=== PATIENT | female | born 1985 | race Caucasian/White ===

== ENCOUNTER 2016-11-06 09:13 | Outpatient (CLI) | payer BC | END 2016-11-06 10:30 | disposition home or self-care (01) | LOC: LC 09:13 | PROVIDERS: ATTEND Obstetrics & Gynecology | PROC: 4A1HXCZ Monitoring of Products of Conception, Cardiac Rate, External Approach (ICD-10-PCS; principal; 2016-11-06) | DX: O20.0 Threatened abortion (principal); Z3A.01 Less than 8 weeks gestation of pregnancy | CPT/HCPCS: 76817; 84702 ==

== ENCOUNTER → 2016-11-24 | Outpatient (CLI) | payer BC ==
[2016-11-24 11:34] LABS: ABSOLUTE BASOPHILS # (AUTO) 0.1 10^3/uL (0.0-0.2); ABSOLUTE EOSINOPHILS # (AUTO) 0.1 10^3/uL (0.0-0.6); ABSOLUTE LYMPHOCYTES (AUTO) 2.3 10^3/uL (0.5-4.7); ABSOLUTE MONOCYTES (AUTO) 0.5 10^3/uL (0.1-1.4); BASOPHILS % (AUTO) 0.5 % (0-2); EOSINOPHILS % (AUTO) 0.6 % (0-6); HEMATOCRIT 41.6 % (36.0-47.0); HEMOGLOBIN 14.5 g/dL (12.0-15.5); HGB HCT DIFFERENCE 1.9; LYMPHOCYTES % (AUTO) 20.9 % (13-45); MEAN CORPUSCULAR HEMOGLOBIN 31.6 pg (27.0-33.4); MEAN CORPUSCULAR HGB CONC 34.9 g/dL (32.0-36.0); MEAN CORPUSCULAR VOLUME 91 fl (80-97); MONOCYTES % (AUTO) 4.5 % (3-13); RED BLOOD COUNT 4.59 10^6/uL (3.72-5.28); RED CELL DISTRIBUTION WIDTH 12.9 % (11.5-14.0); SEGMENTED NEUTROPHILS % (AUTO) 73.5 % (42-78); WHITE BLOOD COUNT 10.9 10^3/uL (4.0-10.5)
== END ==
LOC: OD 10:39
PROVIDERS: ATTEND Nurse Practitioner Primary Care
DX: O03.9 Complete or unspecified spontaneous abortion without complication (principal)
CPT/HCPCS: 36415; 84702; 85025

== ENCOUNTER → 2016-11-29 | Outpatient (CLI) | payer BC ==
[2016-11-29 09:58] LABS: ABSOLUTE EOSINOPHILS # (AUTO) 0.1 10^3/uL (0.0-0.6); ABSOLUTE LYMPHOCYTES (AUTO) 2.1 10^3/uL (0.5-4.7); ABSOLUTE MONOCYTES (AUTO) 0.5 10^3/uL (0.1-1.4); ABSOLUTE NEUT (AUTO) 6.7 10^3/uL (1.7-8.2); BASOPHILS % (AUTO) 0.3 % (0-2); EOSINOPHILS % (AUTO) 1.2 % (0-6); HEMOGLOBIN 12.3 g/dL (12.0-15.5); HGB HCT DIFFERENCE 1.9; LYMPHOCYTES % (AUTO) 22.2 % (13-45); MEAN CORPUSCULAR HEMOGLOBIN 31.7 pg (27.0-33.4); MEAN CORPUSCULAR HGB CONC 35.1 g/dL (32.0-36.0); MEAN CORPUSCULAR VOLUME 90 fl (80-97); RED BLOOD COUNT 3.87 10^6/uL (3.72-5.28); RED CELL DISTRIBUTION WIDTH 12.8 % (11.5-14.0); SEGMENTED NEUTROPHILS % (AUTO) 71.3 % (42-78); WHITE BLOOD COUNT 9.4 10^3/uL (4.0-10.5)
== END ==
LOC: OD 09:02
PROVIDERS: ATTEND Nurse Practitioner Primary Care
DX: O03.9 Complete or unspecified spontaneous abortion without complication (principal)
CPT/HCPCS: 36415; 84702; 85025

== ENCOUNTER → 2016-12-06 | Outpatient (CLI) | payer BC | LOC: OD 10:41 | PROVIDERS: ATTEND Nurse Practitioner Primary Care | DX: O03.9 Complete or unspecified spontaneous abortion without complication (principal) | CPT/HCPCS: 36415; 84702 ==

== ENCOUNTER → 2016-12-13 | Outpatient (CLI) | payer BC | LOC: OD 13:11 | PROVIDERS: ATTEND Nurse Practitioner Primary Care | DX: O03.9 Complete or unspecified spontaneous abortion without complication (principal) | CPT/HCPCS: 36415; 84702 ==

== ENCOUNTER → 2016-12-27 | Outpatient (CLI) | payer BC | LOC: OD 13:15 | PROVIDERS: ATTEND Obstetrics & Gynecology Reproductive Endocrinology | DX: Z32.00 Encounter for pregnancy test, result unknown (principal) | CPT/HCPCS: 36415; 84702 ==

== ENCOUNTER → 2017-01-10 | Outpatient (CLI) | payer BC | LOC: OD 13:11 | PROVIDERS: ATTEND Obstetrics & Gynecology Reproductive Endocrinology | DX: E34.9 Endocrine disorder, unspecified (principal) | CPT/HCPCS: 36415; 84702 ==

== ENCOUNTER → 2017-03-07 | Outpatient (CLI) | payer SELFPAY ==
--- NOTE | 2017-03-07 16:49 | RADIOLOGY REPORT (SQ) ---
EXAM DESCRIPTION: HYSTERO W/WO COLR FLW DOPPLER COMPLETED DATE/TIME: 03/07/2017 2:47 pm REASON FOR STUDY: ENDO POLYP COMPARISON: Prior hysterosonogram 07/15/2016 TECHNIQUE: Dynamic and static grayscale images acquired of the pelvis via transvaginal approach and recorded on PACS. Additional selected color Doppler and spectral images recorded. Initial imaging of the pelvis was performed transvaginally, without a catheter in place. After insertion of a vaginal speculum, a 5 Frenchhysterosalpingogram catheter was placed with the tip in the cervix/lower uterine segment. Speculum removed, and repeat endovaginal ultrasound was perform ed during gentle hand injection of sterile saline into the endometrial canal. Endovaginal scanning was repeated after removal of the hysterosalpingogram catheter. LIMITATIONS: None. FINDINGS: UTERUS: Contour normal. No mass. The uterus measures 8 x 5.5 x 4.6 cm in size. ENDOMETRIAL STRIPE: 4 mm in total thickness. No focal or generalized thickening. No masses. No polyps . No cysts. CERVIX: No nabothian cysts. RIGHT OVARY: No abnormal masses. Right ovary 2.6 x 2.2 x 1 cm in size RIGHT OVARY DOPPLER: Normal arterial vascular flow without evidence for torsion. LEFT OVARY: No abnormal masses. Left ovary 2.4 x 1.2 x 1.5 cm in size LEFT OVARY DOPPLER: Normal arterial vascular flow without evidence for torsion. FREE FLUID: None noted. OTHER: No other significant finding. IMPRESSION: NORMAL TRANSVAGINAL PELVIC ULTRASOUND WITH HYSTEROSONOGRAM TECHNIQUE. TECHNICAL DOCUMENTATION: JOB ID: [id number] [employer]- All Rights Reserved
== END ==
LOC: RAD 12:44
PROVIDERS: ATTEND Obstetrics & Gynecology Reproductive Endocrinology
DX: N84.0 Polyp of corpus uteri (principal)
CPT/HCPCS: 76831

== ENCOUNTER → 2017-03-29 | Outpatient (CLI) | payer MEDICARE | LOC: OD 11:41 | PROVIDERS: ATTEND Obstetrics & Gynecology Reproductive Endocrinology | DX: E34.9 Endocrine disorder, unspecified (principal) | CPT/HCPCS: 36415; 84702 ==

== ENCOUNTER → 2017-04-25 | Outpatient (CLI) | payer BC ==
--- NOTE | 2017-04-25 10:32 | RADIOLOGY REPORT (SQ) ---
EXAM DESCRIPTION: U/S NON-OB PELVIS TV W/O DOP COMPLETED DATE/TIME: 04/25/2017 7:59 am REASON FOR STUDY: ENDOCRINE DISORDER, UNSPECIFIED (E34.9) CHECK LINING THICKNESS AND PATTERN E34.9 ENDOCRINE DISORDER, UNSPECIFIED COMPARISON: None. TECHNIQUE: Dynamic and static grayscale images acquired of the pelvis via transvaginal approach and recorded on PACS. Additional selected color Doppler and spectral images recorded. LIMITATIONS: None. FINDINGS: UTERUS: Contour normal. No mass. ENDOMETRIAL STRIPE: 11 mm. Normal in appearance. CERVIX: No nabothian cysts. RIGHT OVARY: Not able to be seen RIGHT OVARY DOPPLER: Ovary not seen LEFT OVARY: No abnormal masses. LEFT OVARY DOPPLER: Normal arterial vascular flow without evidence for torsion. FREE FLUID: None noted. OTHER: No other significant finding. MEASUREMENTS: UTERUS: 9.1 x 6.4 x 5.1 cm. ENDOMETRIAL STRIPE: 11 mm. RIGHT OVARY: Not seen. LEFT OVARY: 2.8 x 1.6 x 1.8 cm. IMPRESSION: NORMAL TRANSVAGINAL PELVIC ULTRASOUND. TECHNICAL DOCUMENTATION: JOB ID: [id number] [employer]- All Rights Reserved
[2017-04-26 07:17] LABS: ESTRADIOL 631.8 pg/mL (.); PROGESTERONE <0.1 ng/mL (.)
== END ==
LOC: RAD 07:15
PROVIDERS: ATTEND Obstetrics & Gynecology Reproductive Endocrinology
DX: E34.9 Endocrine disorder, unspecified (principal)
CPT/HCPCS: 36415; 76830; 82670; 84144

== ENCOUNTER → 2017-05-19 | Outpatient (CLI) | payer BC | LOC: OD 14:03 | PROVIDERS: ATTEND Obstetrics & Gynecology Reproductive Endocrinology | DX: E34.9 Endocrine disorder, unspecified (principal) | CPT/HCPCS: 36415; 84702 ==

== ENCOUNTER → 2017-05-23 | Outpatient (CLI) | payer BC | LOC: OD 08:14 | PROVIDERS: ATTEND Obstetrics & Gynecology Reproductive Endocrinology | DX: E34.9 Endocrine disorder, unspecified (principal) | CPT/HCPCS: 36415; 84702 ==

== ENCOUNTER → 2017-06-08 | Outpatient (CLI) | payer BC ==
--- NOTE | 2017-06-08 13:59 | RADIOLOGY REPORT (SQ) ---
EXAM DESCRIPTION: U/S OB TRANSVAGINAL W/O DOP COMPLETED DATE/TIME: 06/08/2017 1:45 pm REASON FOR STUDY: ENDOCRINE DISORDER, UNSPECIFIED (E34.9) E34.9 ENDOCRINE DISORDER, UNSPECIFIED COMPARISON: 04/25/2017 non OB pelvic ultrasound. TECHNIQUE: Transvaginal static and realtime grayscale images acquired of the pelvis. Additional jayy cted spectral and color Doppler images recorded. All images stored on PACs. bHCG: Not provided. LIMITATIONS: None. FINDINGS: TWIN GESTATIONS ARE PRESENT. TWIN A: FETUS: Living intrauterine . EGA: 6 weeks 6 day NAHUM: 01/26/2018 FHR: 160 beats per minute. SUBCHORIONIC BLEED: No. SIZE OF BLEED: Not applicable. TWIN B: FETUS: Living intrauterine . EGA: 6 week 3 day NAHUM: 01/29/2018 FHR: 117 beats per minute. SUBCHORIONIC BLEED: No. SIZE OF BLEED: Not applicable. UTERUS: No masses. No anomalies. CERVICAL LENGTH: 2.9 cm. Closed. RIGHT ADNEXA: Ovary not identified. LEFT ADNEXA: Ovary not identified. FREE FLUID: None. OTHER: No other significant finding. IMPRESSION: Early twin gestations as above. Twin A: 6 week 6 day. Twin B: 6 week 3 day. Trimester of : First - 0 to 13 weeks. TECHNICAL DOCUMENTATION: JOB ID: [id number] [employer]- All Rights Reserved
--- NOTE | 2017-06-08 14:08 | RADIOLOGY REPORT (SQ) ---
EXAM DESCRIPTION: U/S 84434 + EACH ADDIT GEST COMPLETE DATE/TIME: 06/08/2017 1:45 pm REASON FOR STUDY: TWIN GESTATION E34.9 ENDOCRINE DISORDER, UNSPECIFIED FINDINGS: Please see combined report for performance of procedure and radiologic supervision and int erpretation. IMPRESSION: Please see combined report for performance of procedure and radiologic supervision and i nterpretation.
== END ==
LOC: RAD 12:16
PROVIDERS: ATTEND Obstetrics & Gynecology Reproductive Endocrinology
DX: O99.281 Endocrine, nutritional and metabolic diseases complicating pregnancy, first trimester (principal); E34.9 Endocrine disorder, unspecified; O30.001 Twin pregnancy, unspecified number of placenta and unspecified number of amniotic sacs, first trimester; Z3A.01 Less than 8 weeks gestation of pregnancy
CPT/HCPCS: 76802; 76817

== ENCOUNTER 2017-12-31 16:29 | Inpatient (IN) | payer BC ==
[2017-12-31] MEDS ORDERED: CEFAZOLIN 1 GM/D5W RTU 1 GM/50 ML RTUPB IV ONE (16:54)
[2017-12-31] MEDS ORDERED: CITRIC ACID/SODIUM CITRATE ORAL SOLN 15 ML UDCUP ONE (16:55)
[2017-12-31 17:02] LABS: APPEARANCE,URINE SLIGHTLY-CLOUDY; BILIRUBIN,URINE NEGATIVE (NEGATIVE); COLOR,URINE YELLOW; GLUCOSE, URINE NEGATIVE (NEGATIVE); KETONES,URINE 80 mg/dL (NEGATIVE); LEUKOCYTE ESTERASE,URINE NEGATIVE (NEGATIVE); NITRITE,URINE NEGATIVE (NEGATIVE); PROTEIN,URINE 30 mg/dL (NEGATIVE); UROBILINOGEN,URINE NEGATIVE mg/dL (<2.0)
[2017-12-31 17:13] LABS: ABSOLUTE BASOPHILS # (AUTO) 0.1 10^3/uL (0.0-0.2); ABSOLUTE LYMPHOCYTES (AUTO) 2.3 10^3/uL (0.5-4.7); ABSOLUTE MONOCYTES (AUTO) 0.5 10^3/uL (0.1-1.4); ABSOLUTE NEUT (AUTO) 7.7 10^3/uL (1.7-8.2); BASOPHILS % (AUTO) 0.7 % (0-2); EOSINOPHILS % (AUTO) 0.2 % (0-6); HEMATOCRIT 32.3 % (36.0-47.0); HEMOGLOBIN 10.5 g/dL (12.0-15.5); LYMPHOCYTES % (AUTO) 21.9 % (13-45); MEAN CORPUSCULAR HEMOGLOBIN 26.3 pg (27.0-33.4); MEAN CORPUSCULAR HGB CONC 32.5 g/dL (32.0-36.0); MEAN CORPUSCULAR VOLUME 81 fl (80-97); MONOCYTES % (AUTO) 4.5 % (3-13); PLATELET COUNT 275 10^3/uL (150-450); RED BLOOD COUNT 3.99 10^6/uL (3.72-5.28); RED CELL DISTRIBUTION WIDTH 15.3 % (11.5-14.0); SEGMENTED NEUTROPHILS % (AUTO) 72.7 % (42-78); TOTAL CELLS COUNTED % (AUTO) 100 %; WHITE BLOOD COUNT 10.5 10^3/uL (4.0-10.5)
[2017-12-31] MEDS ORDERED: BUPIVACAINE INJ/PF LIPOSOME/PF 266 MG/20 ML SDV INJ ONE (17:15)
[2017-12-31 17:25] LABS: URINE AMPHETAMINES SCREEN NEGATIVE; URINE BARBITURATES SCREEN NEGATIVE; URINE BENZODIAZEPINES SCREEN NEGATIVE; URINE COCAINE SCREEN NEGATIVE; URINE MARIJUANA (THC) SCREEN NEGATIVE; URINE METHADONE SCREEN NEGATIVE; URINE PHENCYCLIDINE SCREEN NEGATIVE
--- NOTE | 2017-12-31 17:25 | Admission Physical ---
Datetime Report Generated by CPN: 12/31/2017 17:24 CURRENT ADMISSION Chief Complaint: Uterine Contractions Indication for Induction: Not Applicable Admit Impression : Term, Intrauterine ; Primary Section Admit Impression- Other: Twin Gestation with transverse lie of Twin A. Admit Plan: Admit to Unit; Initiate Section Protocol ALLERGIES Medication Allergies: No Medication Allergies: No Known Allergies (02/29/2016) Latex: No Latex Allergies Food Allergies: n/a Environmental Allergies: n/a OBSTETRICAL HISTORY EDC: 01/17/2018 00:00 : 5 Para: 2 Term: 2 : 0 SAB: 2 IAB: 0 Ectopic: 0 Livin Cesareans: 0 VBACs: 0 Multiple Births: 1 Gestational Diabetes: No Rh Sensitization: No Incompetent Cervix: No INES: No Infertility: No ART Treatment: No Uterine Anomaly: No IUGR: No Hx Previous C/S: No Macrosomia: No Hx Loss/Stillborn: No PIH: No Hx : No Placenta Previa/Abruption: No Depression/PP Depression: No PTL/PROM: No Post Hemorrhage: No Current Procedures: Ultrasound; NST Obstetrical History Comments: G1-40wks G2-SAB 6.5wks sarogacy G3-41.3 7wks sarogacy G4- SAB G5- current SEE RECORDS Alcohol: No Marijuana : No Cocaine: No Other Illicit Drugs: No Cigarettes: Never Smoker. [id number] MEDICAL HISTORY Diabetes: No Blood Transfusion: No Pulmonary Disease (Asthma, TB): No Breast Disease: No Hypertension: No Lemon Grower Surgery: No Heart Disease: No Hosp/Surgery: Yes Autoimmune Disorder: No Anesthetic Complications: No Kidney Disease: No Abnormal Pap Smear: No Neuro/Epilepsy: No Psychiatric Disorders: No Other Medical Diseases: No Hepatitis/Liver Disease: No Significant Family History: No Varicosities/Phlebitis: No Trauma/Violence : No Thyroid Dysfunction: No Medical History Comments: tubal ligation/childbirth INFECTIOUS HISTORY Gonorrhea: No Genital Herpes: No Chlamydia: No Tuberculosis: No Syphilis: No Hepatitis: No HIV/AIDS Exposure: No Rash or Viral Illness: No HPV: No PHYSICAL EXAM General: Normal HEENT: Normal Neurologic: Normal Thyroid: Normal Heart: Normal Lungs: Normal Breast: Normal Back: Normal Abdomen: Normal Genitourinary Exam: Normal Extremities: Normal DTRs: Normal Pelvic Type: Adequate Vital Signs: Reviewed VAGINAL EXAM Dilatation: 4 Effacement: 75 MEMBRANES Pooling: Negative Membranes: Intact FETUS A EGA: 37.4 Monitoring: External US FHR- Baseline: 160 Variability: Moderate 6-25bpm Accelerations: 15X15 Decelerations: None Estimated Weight (gm): 3000 Presentation: Transverse FETUS B Variability: Moderate 6-25bpm Accelerations: 15X15 Decelerations: None FHR Category: Category I Estimated Weight (gm): 3400 Presentation: Transverse PLANS FOR LABOR AND DELIVERY Labor and Delivery: None Pain Management: Spinal Feeding Preference: Formula Circumcision: Yes INFORMED CONSENT Signature: with User ID: [email or web address]
[2017-12-31] MEDS ORDERED: MIDAZOLAM 2 MG/2 ML INJ ONE (18:12)
[2017-12-31] MEDS ORDERED: FENTANYL CITRATE INJ/PF 100 MCG/2 ML AMPUL ONE ×2 (18:12→21:53)
[2017-12-31] MEDS ORDERED: KETOROLAC TROMETHAMINE INJ/PF 30 MG/1 ML SDV ONE ×2 (18:12→21:26)
[2017-12-31] MEDS ORDERED: EPHEDRINE SULFATE INJ 50 MG/1 ML AMPULE ONE (18:12)
[2017-12-31] MEDS ORDERED: OXYTOCIN/NORMAL SALINE 20 UNIT/1,000 ML RTUINJ ONE (18:12)
[2017-12-31] MEDS ORDERED: OXYTOCIN 10 UNIT/ML VIAL ONE (18:12)
[2017-12-31] MEDS ORDERED: ACETAMINOPHEN 100 ML IV ONE ×2 (18:12→20:59)
[2017-12-31] MEDS ORDERED: ONDANSETRON HCL INJ/PF 4 MG/2 ML SDV ONE ×2 (18:13→19:09)
[2017-12-31] MEDS ORDERED: BUPIVACAINE HCL/DEX-WATER/PF 15 MG/2 ML AMPULE ONE (18:17)
[2017-12-31] MEDS ORDERED: BUPIVACAINE INJ/PF LIPOSOME/PF 266 MG/20 ML SDV ONE (18:55)
[2017-12-31] MEDS ORDERED: OXYCODONE-ACETAMINOPHEN 5-325 MG TABLET PO PRN (19:53)
[2017-12-31] MEDS ORDERED: ACETAMINOPHEN 100 ML IV PRN (19:53)
[2017-12-31] MEDS ORDERED: SIMETHICONE 80 MG TAB.CHEW PO PRN (19:53)
[2017-12-31] MEDS ORDERED: OXYTOCIN/NORMAL SALINE 20 UNIT/1,000 ML RTUINJ IV PRN (19:53)
[2017-12-31] MEDS ORDERED: PROMETHAZINE HCL INJ 25 MG/1 ML VIAL IV PRN (19:53)
[2017-12-31] MEDS ORDERED: DIPH/PERTUSS(ACELL)/TETANUS VAC/PF 0.5 ML SYR (>=10YO) IM PRN (19:53)
[2017-12-31] MEDS ORDERED: MEASLES,MUMPS&RUBELLA VACC/PF 0.5 ML VIAL SUBCUT PRN (19:53)
[2017-12-31] MEDS ORDERED: ACETAMINOPHEN 325 MG TABLET PO PRN (19:53)
[2017-12-31] MEDS ORDERED: MORPHINE SULFATE 10 MG/ML INJ IV PRN (19:53)
--- NOTE | 2017-12-31 22:14 | OPERATIVE REPORT E ---
Operative Report NAME: RUCHI STANFORD : 1985 AGE: 32Y DATE OF SURGERY: 12/31/2017 ROOM: LR200 SURGEON: NAHUN STANTON M.D. ANESTHESIA: Dr. Garcia with a spinal. PREOPERATIVE DIAGNOSES: 1. IUP at 37 weeks and 4 days twin gestation. 2. Transverse lie of twin A. 3. IV after . 4. Surrogate . 5. Active labor. POSTOPERATIVE DIAGNOSES: 1. IUP at 37 weeks and 4 days twin gestation. 2. Transverse lie of twin A. 3. IV after . 4. Surrogate . 5. Active labor. ESTIMATED BLOOD LOSS: 800 mL. FINDINGS: Fetus A was in a transverse head right lie, Apgars were 8 and 9. Fetus B was in a vertex lie with Apgars of 8 and 9. Mostly absent fallopian tubes secondary to patient's previous tubal. COMPLICATIONS: None. OPERATION: Primary low transverse hysterotomy section. PROCEDURE IN DETAIL: The patient was taken to the operating room, prepared, and draped in normal sterile fashion in supine position with a leftward tilt. A transverse skin incision was made with a scalpel and carried through to the underlying layer of fascia with the same scalpel. The fascia was excised in the midline and extended laterally with Alves scissors. The fascia was then dissected from the rectus muscles sharply with the Mayos and the rectus muscle was divided. The peritoneal cavity was entered bluntly with good visualization of the bladder and the uterus. The bladder blade was inserted. The hysterotomy was nicked with a scalpel and extended laterally with surgeon finger fracture. Amniotomy was performed on fetus A and the feet were grasped and the infant was delivered using normal breech extraction procedures. The nose and mouth were suctioned with the suction bulb. The cord was clamped and cut and the infant was handed off to waiting pediatricians. Cord blood was collected. The attention was then turned to the second fetus and the amniotomy was performed. The fetus was found to be in a vertex presentation and maneuvered to facilitate delivery and the fetus was delivered in the normal fashion. Nose and mouth were suctioned. The cord was clamped and cut and the infant was handed off to waiting pediatricians. Cord blood was collected. The placentas were then removed manually. The uterus was exteriorized and cleared of clots and debris. The hysterotomy was closed with 0 Monocryl in a running locked fashion. A second layer of the same suture was used to imbricate stitch to ensure hemostasis. The uterus was returned to the abdomen and the peritoneal cavity and rectus muscle were reapproximated with a mattress suture of 2-0 chromic. The fascia was closed with 0 Vicryl. The subcutaneous layer was closed with plain catgut and the skin was closed with 4-0 Vicryl. The patient was then injected with approximately 60 mL of Exparel in 2-3 mm increments along the line of her incision for pain relief. Patient tolerated the procedure well. Sponge, lap, and needle counts were correct x2. Patient was taken to recovery in stable condition. DICTATING PHYSICIAN: NAHUN STANTON M.D. [id number] [facility]#: [id number] 1954 ID: [id number] JOB#: [id number] ACCT: [id number] cc:NAHUN STANTON M.D. >
[2018-01-01] MEDS: KETOROLAC TROMETHAMINE INJ/PF 30 MG/1 ML SDV IV SCH ×3 (00:39→14:59)
[2018-01-01] MEDS: IBUPROFEN 800 MG TABLET PO SCH ×4 (02:15→17:46)
[2018-01-01 06:10] LABS: MEAN CORPUSCULAR HEMOGLOBIN 26.6 pg (27.0-33.4); MEAN CORPUSCULAR HGB CONC 33.3 g/dL (32.0-36.0); MEAN CORPUSCULAR VOLUME 80 fl (80-97); PLATELET COUNT 176 10^3/uL (150-450); RED BLOOD COUNT 2.62 10^6/uL (3.72-5.28); RED CELL DISTRIBUTION WIDTH 15.3 % (11.5-14.0)
[2018-01-01] MEDS: PRENATAL VITAMIN W DHA CAPSULE PO SCH (09:07)
[2018-01-01] MEDS: DOCUSATE SODIUM 100 MG CAPSULE PO SCH ×2 (09:07→17:47)
[2018-01-01] MEDS: ASCORBIC ACID 500 MG TABLET PO SCH ×2 (09:07→17:47)
[2018-01-01] MEDS ORDERED: FERROUS SULFATE 325 MG TABLET PO SCH (10:00)
--- NOTE | 2018-01-01 10:02 | PDOC PROGRESS REPORT ---
Subjective-OB Progress Note for:: 01/01/18 Subjective: Day #1 s/p primary c/s Pt doing well, denies concerns, states lochia is stable, pain well controlled, due to void, has not been up yet. Physical Exam (OB) Vital Signs: Temp Pulse Resp BP Pulse Ox 97.9 F 62 18 104/62 97 01/01/18 07:30 01/01/18 07:30 01/01/18 07:30 01/01/18 07:30 01/01/18 07:30 Intake & Output 12/31/17 01/01/18 01/02/18 06:59 06:59 06:59 Intake Total 660 Output Total 333 Balance 327 Weight 76 kg - Lochia Lochia Amount: Moderate 25-50 ml Lochia Color: Serosa/Brown - Abdomen Fundal Description: Firm, Midline Fundal Height: 1/u - 2/u Objective-Diagnostic Laboratory: 01/01/18 05:55 12/31/17 12/31/17 12/31/17 16:38 17:00 17:00 WBC 10.5 RBC 3.99 Hgb 10.5 L Hct 32.3 L MCV 81 MCH 26.3 L MCHC 32.5 RDW 15.3 H Plt Count 275 Seg Neutrophils % 72.7 Lymphocytes % 21.9 Monocytes % 4.5 Eosinophils % 0.2 Basophils % 0.7 Absolute Neutrophils 7.7 Absolute Lymphocytes 2.3 Absolute Monocytes 0.5 Absolute Eosinophils 0.0 Absolute Basophils 0.1 Urine Color YELLOW Urine Appearance SLIGHTLY-CLOUDY Urine pH 5.0 Ur Specific [place] 1.020 Urine Protein 30 H Urine Glucose (UA) NEGATIVE Urine Ketones 80 H Urine Blood NEGATIVE Urine Nitrite NEGATIVE Ur Leukocyte Esterase NEGATIVE Blood Type O POSITIVE Antibody Screen NEGATIVE 01/01/18 05:55 WBC 10.0 RBC 2.62 L Hgb 7.0 L D Hct 21.0 L MCV 80 MCH 26.6 L MCHC 33.3 RDW 15.3 H Plt Count 176 Seg Neutrophils % Lymphocytes % Monocytes % Eosinophils % Basophils % Absolute Neutrophils Absolute Lymphocytes Absolute Monocytes Absolute Eosinophils Absolute Basophils Urine Color Urine Appearance Urine pH Ur Specific [place] Urine Protein Urine Glucose (UA) Urine Ketones Urine Blood Urine Nitrite Ur Leukocyte Esterase Blood Type Antibody Screen Assessment and Plan(PN) - Assessment and Plan (1) Acute blood loss anemia Is this a current diagnosis for this admission?: Yes Plan: ferrous uslfate increase dietary anemia (2) Surrogate Is this a current diagnosis for this admission?: Yes Plan: routine post op care (3) Twin , delivered by section, current hospitalization Is this a current diagnosis for this admission?: Yes Plan: routine post op care - Time Spent with Patient Time with patient: Less than 15 minutes Critical Time spent with patient: Less than 15 minutes Smoking Education Provided: Over 3 minutes - Disposition Anticipated Discharge: Home Within: within 24 hours
[2018-01-01] MEDS: OXYCODONE-ACETAMINOPHEN 5-325 MG TABLET PO PRN ×2 (10:49→16:42)
[2018-01-01] MEDS: FERROUS SULFATE 325 MG TABLET PO SCH (21:46)
[2018-01-02] MEDS: IBUPROFEN 800 MG TABLET PO SCH ×3 (00:10→13:38)
[2018-01-02] MEDS: OXYCODONE-ACETAMINOPHEN 5-325 MG TABLET PO PRN (00:11)
[2018-01-02] MEDS: FERROUS SULFATE 325 MG TABLET PO SCH (05:59)
[2018-01-02 07:03] LABS: ABSOLUTE BASOPHILS # (AUTO) 0.1 10^3/uL (0.0-0.2); ABSOLUTE EOSINOPHILS # (AUTO) 0.2 10^3/uL (0.0-0.6); ABSOLUTE LYMPHOCYTES (AUTO) 2.4 10^3/uL (0.5-4.7); ABSOLUTE MONOCYTES (AUTO) 0.5 10^3/uL (0.1-1.4); ABSOLUTE NEUT (AUTO) 8.7 10^3/uL (1.7-8.2); BASOPHILS % (AUTO) 1.2 % (0-2); EOSINOPHILS % (AUTO) 1.3 % (0-6); HEMATOCRIT 25.6 % (36.0-47.0); HEMOGLOBIN 8.4 g/dL (12.0-15.5); LYMPHOCYTES % (AUTO) 20.2 % (13-45); MEAN CORPUSCULAR HEMOGLOBIN 26.2 pg (27.0-33.4); MEAN CORPUSCULAR HGB CONC 32.8 g/dL (32.0-36.0); MEAN CORPUSCULAR VOLUME 80 fl (80-97); MONOCYTES % (AUTO) 4.3 % (3-13); PLATELET COUNT 187 10^3/uL (150-450); RED CELL DISTRIBUTION WIDTH 15.3 % (11.5-14.0); TOTAL CELLS COUNTED % (AUTO) 100 %; WHITE BLOOD COUNT 11.9 10^3/uL (4.0-10.5)
[2018-01-02] MEDS: ASCORBIC ACID 500 MG TABLET PO SCH (09:43)
[2018-01-02] MEDS: PRENATAL VITAMIN W DHA CAPSULE PO SCH (09:43)
[2018-01-02] MEDS: DOCUSATE SODIUM 100 MG CAPSULE PO SCH (09:43)
--- NOTE | 2018-01-02 11:07 | PDOC DISCHARGE SUMMARY ---
Final Diagnosis Discharge Date: 01/02/18 - Final Diagnosis (1) Acute blood loss anemia Is this a current diagnosis for this admission?: Yes (2) Surrogate Is this a current diagnosis for this admission?: Yes (3) Twin , delivered by section, current hospitalization Is this a current diagnosis for this admission?: Yes Discharge Data - Discharge Medication Home Medications: Pnv95/Iron Fum/Folic Acid [ Caplet] 1 tab PO DAILY 02/26/16 Reason(s) for Admission: Onset of Labor, Ceasarean Section-Primary Procedures: Ultrasound Intrapartum Procedure(s): : Low Cervical, Transverse - Diagnosis Test Laboratory: Temp Pulse Resp BP Pulse Ox 97.9 F 65 16 109/69 100 01/02/18 08:28 01/02/18 08:28 01/02/18 08:28 01/02/18 08:28 01/02/18 08:28 12/31/17 12/31/17 01/01/18 16:38 17:00 05:55 RBC 3.99 2.62 L Hgb 10.5 L 7.0 L D Hct 32.3 L 21.0 L Urine Opiates Screen NEGATIVE 01/02/18 06:52 RBC 3.20 L Hgb 8.4 L Hct 25.6 L Urine Opiates Screen - Discharge information/Instructions Discharge Activity: No Lifting Over 10 Pounds, Pelvic Rest, No tub bath Discharge Diet: As Tolerated Disposition: HOME, SELF-CARE Follow up with: [facility] in: 1, Weeks
[2018-01-02 12:18] VITALS: BP 112/67
== END 2018-01-02 14:06 | disposition home or self-care (01) | DRG 766 ==
LOC: LC 16:29 → LR 17:06 → 2N 22:21
PROVIDERS: ADMIT Obstetrics & Gynecology; ATTEND Obstetrics & Gynecology
PROC: 10D00Z1 Extraction of Products of Conception, Low, Open Approach (ICD-10-PCS; principal; 2017-12-31)
DX: O30.043 Twin pregnancy, dichorionic/diamniotic, third trimester (principal); O32.2XX1 Maternal care for transverse and oblique lie, fetus 1; Z37.2 Twins, both liveborn; Z3A.37 37 weeks gestation of pregnancy; Z90.79 Acquired absence of other genital organ(s)
CPT/HCPCS: 1961; 36415; 80307; 81005; 85025; 85027; 86592; 86850; 86900; 86901; 94799; C9290; J0131; J0690; J1885; J2250; J2405; J2550; J2590; J3010; J3490

== ENCOUNTER → 2018-06-09 | Outpatient (CLI) | payer BC ==
--- NOTE | 2018-06-09 17:31 | RADIOLOGY REPORT (SQ) ---
EXAM DESCRIPTION: CHEST PA/LATERAL COMPLETED DATE/TIME: 06/09/2018 4:49 pm REASON FOR STUDY: PPD SCREENING TEST COMPARISON: None. EXAM PARAMETERS: NUMBER OF VIEWS: two views TECHNIQUE: Digital Frontal and Lateral radiographic views of the chest acquired. RADIATION DOSE: NA LIMITATIONS: none FINDINGS: LUNGS AND PLEURA: No opacities, masses or pneumothorax. No pleural effusion. No cavitary lesions. No focal infiltrates. MEDIASTINUM AND HILAR STRUCTURES: No masses or contour abnormalities. HEART AND VASCULAR STRUCTURES: Heart normal size. No evidence for failure. BONES: No acute findings. HARDWARE: None in the chest. OTHER: No other significant finding. IMPRESSION: NO SIGNIFICANT RADIOGRAPHIC FINDING IN THE CHEST. TECHNICAL DOCUMENTATION: JOB ID: [id number] [employer]- All Rights Reserved Reading location - IP/workstation name: [email or web address]
== END ==
LOC: OD 16:39
PROVIDERS: ATTEND Physician Assistant
DX: Z11.1 Encounter for screening for respiratory tuberculosis (principal)
CPT/HCPCS: 71046

== ENCOUNTER 2020-06-19 06:44 | Inpatient (IN) | payer BC ==
[2020-06-19] MEDS ORDERED: MORPHINE SULFATE 10 MG/ML INJ IV ONE ×3 (07:20→11:22)
[2020-06-19] MEDS ORDERED: ONDANSETRON HCL INJ/PF 4 MG/2 ML SDV IV ONE (07:20)
--- NOTE | 2020-06-19 07:20 | ER Document Report ---
ED General - General Chief Complaint: Post Surgical Pain Stated Complaint: SHORTNESS OF BREATH, COUPHING UP BLOOD Time Seen by Provider: 06/19/20 06:58 Primary Care Provider: MIMI CUNNINGHAM PA-C [PHYSICIAN BUILDER OPERATOR] - Follow up as needed TRAVEL OUTSIDE OF THE [place] IN LAST 30 DAYS: No - HPI Notes: Patient is a 35-year-old female, 11 days status post bilateral breast augmen tation and abdominoplasty, who presents to the emergency department for evaluation of chest pain or shortness of breath. It started yesterday while she was at rest. She describes it as a heaviness, worsened with deep breath, with associated dyspnea. She denies any fevers or chills. Yesterday she did cough, had a small amount of hemoptysis. She has had no nausea or vomiting. She is eating and drinking normally. She denies any pain in her legs or swelling in her calves. She has a history of anxiety, but states she has never had any symptoms like this with her anxiety in the past. - Related Data Allergies/Adverse Reactions: No Known Allergies Allergy (Verified 06/19/20 08:57) Home Medications: Lexapro, BuSpar Past Medical History - General Information source: Patient - Social History Smoking Status: Never Smoker Frequency of alcohol use: None Drug Abuse: None Family History: Reviewed & Not Pertinent, Hypertension Patient has homicidal ideation: No Psychiatric Medical History: Reports: Hx Anxiety, Hx Depression Past Surgical History: Reports: Hx Breast Surgery - Augmentation, Hx Section, Hx Tubal Ligation, Other - Abdominoplasty - Immunizations Immunizations up to date: Yes Hx Diphtheria, Pertussis, Tetanus Vaccination: Yes Review of Systems - Review of Systems Constitutional: No symptoms reported EENT: No symptoms reported Cardiovascular: See HPI Respiratory: See HPI Gastrointestinal: No symptoms reported Genitourinary: No symptoms reported Musculoskeletal: No symptoms reported Skin: No symptoms reported Neurological/Psychological: No symptoms reported -: Yes All other systems reviewed and negative Physical Exam - Vital signs Vitals: Temp Pulse Resp BP Pulse Ox 98.4 F 128 H 22 H 107/65 94 06/19/20 06:49 06/19/20 06:49 06/19/20 06:49 06/19/20 06:49 06/19/20 06:49 - Notes Notes: This is an extremely anxious appearing 35-year-old female, who appears her stated age in a mild to moderate distress. Vital signs reviewed, please refer to chart. Head is normocephalic, atraumatic. Pupils equal round, reactive to light. Neck is supple without meningismus. Heart is tachycardic with normal S1-S2. Lungs are clear to auscultation bilaterally. Abdomen is firm, globally tender. She has well approximated surgical scar located across lower abdomen, horizontally oriented. No signs of dehiscence or induration. No drainage. Extremities without cyanosis, clubbing. Posterior calves are nontender. Peripheral pulses are equal. Skin is warm and dry. Patient is awake, alert, neurological exam is nonfocal. Course - Re-evaluation Re-evalutation: 06/19/20 07:19 Patient presents to the emergency department for evaluation of chest pain or shortness of breath. She had recent surgery. My primary concern in this patient is a possibility of a pulmonary embolus. This was explained in detail to the patient. Laboratory investigations and EKG, as well as CT angiogram of the chest have been ordered. I will give the patient pain and nausea medication. She is currently stable, we will continue to monitor. 06/19/20 09:01 Contacted by radiologist at approximately 0850, notified of finding of bilateral PEs, primarily in the right and left lower lobe. It appears that she has a developing infarction in her right lower lobe. Only mild RV dysfunction noted. Heparin order placed. Patient notified. Will contact medicine. 06/19/20 09:[address] Clement. He will accept the patient for admission. He asked that a rapid Covid test be performed. He also asked that consultation be made to Dr. Mckeon. Dr. Goodwin is actually on-call. Consult order placed, Dr. Goodwin notified. House superviser states that we have no rapid Covid tests in the ER. Dr. Clement called back, asks that antibiotics be given, asks that Cefepime and stat echocardiogram be ordered. - Vital Signs Vital signs: Temp Pulse Resp BP Pulse Ox 98.4 F 128 H 22 H 107/65 95 06/19/20 06:49 06/19/20 06:49 06/19/20 06:49 06/19/20 06:49 06/19/20 07:35 - Laboratory Result Diagrams: 06/19/20 07:02 06/19/20 07:02 Laboratory results interpreted by me: 06/19/20 06/19/20 07:02 07:02 WBC 17.9 H Lymph % (Auto) 9.2 L Absolute Neuts (auto) 15.1 H Seg Neutrophils % 84.2 H Glucose 128 H - Diagnostic Test Radiology reviewed: Reports reviewed Radiology results interpreted by me: 06/19/20 09:02 Chest/Abdomen CTA 06/19/20 07:13 IMPRESSION: 1. BILATERAL PULMONARY EMBOLI TO THE LOWER LOBES, RIGHT GREATER THAN LEFT. 2. RIGHT PLEURAL EFFUSION. AIRSPACE DISEASE THROUGHOUT THE RIGHT LOWER LOBE PROBABLY DUE TO PULMONARY INFARCTION. SUPERIMPOSED PNEUMONIA CANNOT BE EXCLUDED. - EKG Interpretation by Me Additional EKG results interpreted by me: 06/19/20 09:02 Sinus tachycardia with a rate of 107 bpm. Significant baseline artifact limits interpretation. Normal axis and intervals. No acute ST changes concerning for infarction. No old studies available for comparison. Discharge - Discharge Clinical Impression: Bilateral pulmonary embolism, Pulmonary infarct Condition: Stable Disposition: ADMITTED INPATIENT Admitting Provider: Clement Unit Admitted: IMCU Referrals: MIMI CUNNINGHAM PA-C [PHYSICIAN BUILDER OPERATOR] - Follow up as needed
[2020-06-19 07:22] LABS: ABSOLUTE LYMPHOCYTES (AUTO) 1.7 10^3/uL (0.5-4.7); ABSOLUTE MONOCYTES (AUTO) 1.1 10^3/uL (0.1-1.4); ABSOLUTE NEUT (AUTO) 15.1 10^3/uL (1.7-8.2); BASOPHILS % (AUTO) 0.2 % (0-2); EOSINOPHILS % (AUTO) 0.1 % (0-6); HEMATOCRIT 36.8 % (36.0-47.0); HEMOGLOBIN 12.7 g/dL (12.0-15.5); LYMPHOCYTES % (AUTO) 9.2 % (13-45); MEAN CORPUSCULAR HEMOGLOBIN 30.8 pg (27.0-33.4); MEAN CORPUSCULAR HGB CONC 34.6 g/dL (32.0-36.0); MEAN CORPUSCULAR VOLUME 89 fl (80-97); MONOCYTES % (AUTO) 6.3 % (3-13); PLATELET COUNT 331 10^3/uL (150-450); RED BLOOD COUNT 4.13 10^6/uL (3.72-5.28); RED CELL DISTRIBUTION WIDTH 12.7 % (11.5-14.0); SEGMENTED NEUTROPHILS % (AUTO) 84.2 % (42-78); TOTAL CELLS COUNTED % (AUTO) 100 %; WHITE BLOOD COUNT 17.9 10^3/uL (4.0-10.5)
[2020-06-19 07:42] LABS: ALBUMIN 4.4 g/dL (3.5-5.0); ALKALINE PHOSPHATASE 88 U/L (38-126); ANION GAP 10 (5-19); ASPARTATE AMINO TRANSFERASE 23 U/L (14-36); BILIRUBIN,DIRECT 0.3 mg/dL (0.0-0.4); BILIRUBIN,TOTAL 0.8 mg/dL (0.2-1.3); BLOOD UREA NITROGEN 12 mg/dL (7-20); CALCIUM 9.6 mg/dL (8.4-10.2); CARBON DIOXIDE 29 mmol/L (22-30); CHLORIDE 99 mmol/L (98-107); GLUCOSE 128 mg/dL (75-110); TOTAL PROTEIN 7.7 g/dL (6.3-8.2)
[2020-06-19] MEDS ORDERED: HEPARIN SOD (PORCINE) 1,000 UNIT/ML 10 ML VIAL IV ONE (08:53)
[2020-06-19] MEDS ORDERED: HEPARIN SODIUM,PORCINE/D5W 25,000 UNIT/250 ML RTUINJ IV PRN (08:53)
--- NOTE | 2020-06-19 09:01 | RADIOLOGY REPORT (SQ) ---
EXAM DESCRIPTION: CTA CHEST IMAGES COMPLETED DATE/TIME: 06/19/2020 8:44 am REASON FOR STUDY: chest pain, dyspnea, post operative, PE eval COMPARISON: None. TECHNIQUE: CT scan of the chest performed using helical scanning technique with dynamic intravenous contrast injection. Images reviewed with lung, soft tissue and bone windows. Reconstructed coronal and sagittal MPR images reviewed. Additional 3 dimensional post-processing performed to develop Maximal Intensity Projection images (FL P). All images stored on PACS. All CT scanners at this facility use dose modulation, iterative reconstruction, and/or weight based d osing when appropriate to reduce radiation dose to as low as reasonably achievable (ALARA). [facility]: Dose Right [facility]: CareDose [facility]: Dose Right [facility]: Teradose 4D [facility]: [place] CONTRAST TYPE AND DOSE: contrast/concentration: Isovue 350.00 mmol/ml; Total Contrast Delivered: 52. 0 ml; Total Saline Delivered: 70.0 ml Contrast bolus adequate for pulmonary arteries and aorta. RENAL FUNCTION: BUN 12 creatinine 0.55. RADIATION DOSE: CT Rad equipment meets quality standard of care and radiation dose reduction techniq ues were employed. CTDIvol: 9.9 - 16.8 mGy. DLP: 544 mGy-cm. . LIMITATIONS: None. FINDINGS: LUNGS AND PLEURA: Fairly diffuse scattered airspace disease throughout the right lower lob e. Small right pleural effusion. Patchy airspace disease in the left lung base. AORTA AND GREAT VESSELS: No aneurysm. No dissection. HEART: The right ventricle is mildly distended. There is no deviation of the ventricular septum. No pericardial effusion. No significant coronary artery calcifications. PULMONARY ARTERIES: There are emboli in several arterial branches to the right lower lobe and a few i n the left lower lobe. HILAR AND MEDIASTINAL STRUCTURES: No identified masses or abnormal nodes. HARDWARE: None in the chest. UPPER ABDOMEN: No significant findings. Possible cyst in the right kidney. Limited exam. THYROID AND OTHER SOFT TISSUES: No masses. No adenopathy. Bilateral breast implants. Scattered gas in the adjacent soft tissues presumed related to recent surgery. BONES: No acute or significant finding. 3D MIPS: Confirm above findings. OTHER: No other significant finding. IMPRESSION: 1. BILATERAL PULMONARY EMBOLI TO THE LOWER LOBES, RIGHT GREATER THAN LEFT. 2. RIGHT PLEURAL EFFUSION. AIRSPACE DISEASE THROUGHOUT THE RIGHT LOWER LOBE PROBABLY DUE TO PULMONAR Y INFARCTION. SUPERIMPOSED PNEUMONIA CANNOT BE EXCLUDED. COMMENT: Pertinent findings on the imaging study reported as a CRITICAL RESULT to MARICEL Saldivar t08:51 on 06/19/2020. Category of Critical Result: Pulmonary emboli. Quality ID # [id number]: Final reports with documentation of one or more dose reduction techniques (e.g., Au tomated exposure control, adjustment of the mA and/or kV according to patient size, use of iterative reconstruction technique) TECHNICAL DOCUMENTATION: JOB ID: [id number] 2010 [email or web address]- All Rights Reserved Reading location - IP/workstation name: [email or web address]-
[2020-06-19 09:16] LABS: INTERNATIONAL RATION (INR) 1.11; PROTHROMBIN TIME 14.6 SEC (11.4-15.4)
[2020-06-19 09:32] LABS: PARTIAL THROMBOPLASTIN TIME 30.3 SEC (23.5-35.8)
[2020-06-19] MEDS ORDERED: CEFEPIME 2 GM/D5W RTU 2 GM/50 ML RTUPB IV ONE (09:48)
[2020-06-19] MEDS ORDERED: ACETAMINOPHEN 325 MG TABLET PO PRN (10:35)
[2020-06-19] MEDS ORDERED: HEPARIN SOD (PORCINE) 1,000 UNIT/ML 10 ML VIAL IV PRN ×2 (11:54→13:30)
[2020-06-19] MEDS: HEPARIN SODIUM,PORCINE/D5W 25,000 UNIT/250 ML RTUINJ IV PRN (12:15)
[2020-06-19] MEDS ORDERED: OXYCODONE-ACETAMINOPHEN 5-325 MG TABLET PO PRN ×2 (12:58→16:34)
[2020-06-19] MEDS ORDERED: ESCITALOPRAM OXALATE 10 MG TABLET PO ONE (13:00)
[2020-06-19] MEDS ORDERED: BUSPIRONE HCL 10 MG TABLET PO ONE (13:00)
--- NOTE | 2020-06-19 13:08 | PDOC H&P ---
History of Present Illness Admission Date/PCP: 06/19/20 10:21 ALEIDA DHILLON MD Patient complains of: Shortness of breath and chest pain History of Present Illness: RUCHI STANFORD is a 35 year old female Is a 35-year-old female with a significant history of anxiety panic attack recently have bilateral breast augmentation and abdominoplasty was done 11 days back came to the emergency department with a complaining of chest pain or shortness of the breath started yesterday Patient also noticed some blood in the sputum and felt better yesterday but today's the symptom is getting more worse in the emergency department patient initial CT scan of the angiogram suggested bilateral pulmonary embolism with right-sided pulmonary infarct and a questionable airspace disease Patient's denied any fever no chills no cough no other symptoms no contact with any Covid Patient's white count was elevated When I saw the patient in the floor patient was alert awake oriented x4 no acute distressed still having some pain when taking deep breathing Patient asking for the Percocet instead of the morphine for the pain she took the Percocet before and works very well and denied any side effect with the medications Discussed with the patient and at this point continues the heparin drip consult the transit mix operator and pulmonary Ordered a stat echocardiogram to rule out any overnight status of the heart strain Past Medical History Psychiatric Medical History: Reports: Depression, General Anxiety Disorder Past Surgical History Past Surgical History: Reports: Section, Tubal Ligation, Other - Abdominoplasty Social History Information Source: Patient Smoking Status: Never Smoker Electronic Cigarette use?: No Frequency of Alcohol Use: None Hx Recreational Drug Use: No Drugs: None Hx Prescription Drug Abuse: No Family History Family History: Reviewed & Not Pertinent, Hypertension Parental Family History Reviewed: Yes Children Family History Reviewed: Yes Sibling(s) Family History Reviewed.: Yes Medication/Allergy Home Medications: Buspirone HCl [Buspar 10 mg Tablet] 10 mg PO Q12 06/19/20 Escitalopram Oxalate [Lexapro 10 mg Tablet] 20 mg PO DAILY 06/19/20 Allergies/Adverse Reactions: No Known Allergies Allergy (Verified 06/19/20 08:57) Review of Systems Constitutional: ABSENT: chills, fever(s), headache(s), weight gain, weight loss Eyes: ABSENT: visual disturbances Ears: ABSENT: hearing changes Cardiovascular: PRESENT: chest pain, dyspnea on exertion. ABSENT: edema, orth ropnea, palpitations Respiratory: PRESENT: dyspnea, hemoptysis. ABSENT: cough Gastrointestinal: ABSENT: abdominal pain, constipation, diarrhea, hematemesis, hematochezia, nausea, vomiting Genitourinary: ABSENT: dysuria, hematuria Musculoskeletal: ABSENT: joint swelling Integumentary: ABSENT: rash, wounds Neurological: ABSENT: abnormal gait, abnormal speech, confusion, dizziness, focal weakness, syncope Psychiatric: ABSENT: anxiety, depression, homidical ideation, suicidal ideation Endocrine: ABSENT: cold intolerance, heat intolerance, menstrual abnormalities, polydipsia, polyuria Hematologic/Lymphatic: ABSENT: easy bleeding, easy bruising, lymphadenopathy Physical Exam Vital Signs: Temp Pulse Resp BP Pulse Ox 98.7 F 73 18 107/64 96 06/19/20 12:00 06/19/20 12:00 06/19/20 12:00 06/19/20 12:00 06/19/20 12:00 Intake & Output 06/18/20 06/19/20 06/20/20 06:59 06:59 06:59 Intake Total 50 Balance 50 Weight 63.3 kg General appearance: PRESENT: no acute distress, well-developed, well-nourished Head exam: PRESENT: atraumatic, normocephalic Eye exam: PRESENT: conjunctiva pink, EOMI, PERRLA. ABSENT: scleral icterus Ear exam: PRESENT: normal external ear exam Mouth exam: PRESENT: moist, tongue midline Neck exam: PRESENT: full ROM. ABSENT: carotid bruit, JVD, lymphadenopathy, thyromegaly Respiratory exam: PRESENT: clear to auscultation kip Cardiovascular exam: PRESENT: RRR. ABSENT: diastolic murmur, rubs, systolic murmur Pulses: PRESENT: normal dorsalis pedis pul, +2 pedal pulses bilateral Vascular exam: PRESENT: normal capillary refill GI/Abdominal exam: PRESENT: normal bowel sounds, soft. ABSENT: distended, guarding, mass, organolmegaly, rebound, tenderness Rectal exam: PRESENT: deferred Neurological exam: PRESENT: alert, awake, oriented to person, oriented to place, oriented to time, oriented to situation, CN II-XII grossly intact. ABSENT: motor sensory deficit Psychiatric exam: PRESENT: appropriate affect, normal mood. ABSENT: homicidal ideation, suicidal ideation Skin exam: PRESENT: dry, intact, warm. ABSENT: cyanosis, rash Results Laboratory Results: 06/19/20 07:02 06/19/20 07:02 06/19/20 06/19/20 07:02 07:02 WBC 17.9 H RBC 4.13 Hgb 12.7 Hct 36.8 MCV 89 MCH 30.8 MCHC 34.6 RDW 12.7 Plt Count 331 Seg Neutrophils % 84.2 H Sodium 138.1 Potassium 4.0 Chloride 99 Carbon Dioxide 29 Anion Gap 10 BUN 12 Creatinine 0.55 Est GFR ( Amer) > 60 Glucose 128 H Calcium 9.6 Total Bilirubin 0.8 AST 23 Alkaline Phosphatase 88 Total Protein 7.7 Albumin 4.4 06/19/20 06/19/20 06/19/20 07:02 07:02 07:02 Creatine Kinase 31 CK-MB (CK-2) < 0.22 Troponin I < 0.012 Impressions: Chest/Abdomen CTA 06/19/20 07:13 IMPRESSION: 1. BILATERAL PULMONARY EMBOLI TO THE LOWER LOBES, RIGHT GREATER THAN LEFT. 2. RIGHT PLEURAL EFFUSION. AIRSPACE DISEASE THROUGHOUT THE RIGHT LOWER LOBE PROBABLY DUE TO PULMONARY INFARCTION. SUPERIMPOSED PNEUMONIA CANNOT BE EXCLUDED. Assessment & Plan - Diagnosis (1) Bilateral pulmonary embolism Is this a current diagnosis for this admission?: Yes Plan: Continues to Heparin drip consult the transit mix operator (2) Pneumonia Qualifiers: Pneumonia type: due to unspecified organism Lung location: unspecified part of lung Is this a current diagnosis for this admission?: Yes Plan: Most likely related to the pulmonary embolisms but with elevated white count will cover with the antibiotic we also checked the Covid tested due to the ongoing pandemic (3) Anxiety disorder Qualifiers: Anxiety disorder type: generalized anxiety disorder Qualified Code(s): F41.1 - Generalized anxiety disorder Is this a current diagnosis for this admission?: Yes Plan: Continues to current medications (4) Pulmonary infarct Is this a current diagnosis for this admission?: Yes - Time Time Spent: 50 to 70 Minutes Medications reviewed and adjusted accordingly: Yes Anticipated Discharge Disposition: Home, Self Care Anticipated Discharge Timeframe: within 72 hours - Inpatient Certification Based on my medical assessment, after consideration of the patient's comorbidities, presenting symptoms, or acuity I expect that the services needed warrant INPATIENT care.: Yes I certify that my determination is in accordance with my understanding of Medicare's requirements for reasonable and necessary INPATIENT services [42 CFR 412.3e].: Yes Medical Necessity: Significant Comorbidiites Make Outpatient Treatment Too Risky, Need Close Monitoring Due to Risk of Patient Decompensation, Need for IV Antibiotics Post Hospital Care: D/C Clinical Nurse Manager Documentation - Plan Summary Plan Summary: Admit the patient in IMCU see MD orders
[2020-06-19 14:44] LABS: ARTERIAL BLOOD BASE EXCESS 3.2 mmol/L; ARTERIAL BLOOD H2CO3 1.26 mmol/L (1.05-1.35); ARTERIAL BLOOD HCO3 27.8 mmol/L (20-24); ARTERIAL BLOOD O2 SATURATION 95.2 % (94-98); ARTERIAL BLOOD PCO2 41.9 mmHg (35-45); ARTERIAL BLOOD PH 7.44 (7.35-7.45); ARTERIAL BLOOD PO2 73.1 mmHg (80-100)
[2020-06-19 14:52] LABS: ARTERIAL BLOOD FIO2 ROOM AIR
[2020-06-19 15:19] LABS: CREATINE KINASE MB < 0.22 ng/mL (<4.55); TROPONIN I < 0.012 ng/mL
--- NOTE | 2020-06-19 16:44 | PDOC CONSULTATION ---
Consultation Consult Date: 06/19/20 Attending physician:: ALEIDA DHILLON Provider Consulted: [facility] Consult reason:: PULMONARY EMBOLUS History of Present Illness Admission Date/PCP: 06/19/20 10:21 ALEIDA DHILLON MD History of Present Illness: RUCHI HUDSON is a 35 year old female status post 11 days from elective abdominal surgery as well as breast implants states that the day before admission she gets short of breath and progressed into the time she presented s he also noted that she was occasionally coughs up clear sputum with streaks of blood she denies fevers chills nausea vomiting diarrhea her PPD status is unknown she has no history of chronic lung disease as a child or adolescent. She has no significant occupational exposure potential respiratory toxins no recent travel she denies anginal chest pain sleeps on recliner. She wears a binder on her abdomen admits to some snoring but denies restless sleep nocturia x1 she denies unrestful sleep or excessive daytime somnolence Past Medical History Medical History: None Psychiatric Medical History: Reports: Depression, General Anxiety Disorder Hematology: Denies: Hemophilia, Sickle Cell Disease, Bleeding Tendencies, Heparin Induced Thrombocytopenia Infectious Medical History: Denies: Hepatitis B, Hepatitis C Past Surgical History Past Surgical History: Reports: Section, Tubal Ligation, Other - Abdominoplasty Social History Information Source: Patient, [facility] Records Lives with: Family Smoking Status: Never Smoker Frequency of Alcohol Use: None Hx Recreational Drug Use: No Drugs: None Hx Prescription Drug Abuse: No Have you had any respiratory illnesses as a child?: No Have you been exposed to any sick contacts recently?: No Have you had any recent respiratory illnesses?: No Have you travelled outside of [place] in the past 12 months?: No Family History Family History: Hypertension Parental Family History Reviewed: Yes Children Family History Reviewed: Yes Sibling(s) Family History Reviewed.: Yes Medication/Allergy Home Medications: Buspirone HCl [Buspar 10 mg Tablet] 10 mg PO Q12 06/19/20 Escitalopram Oxalate [Lexapro 10 mg Tablet] 20 mg PO DAILY 06/19/20 Allergies/Adverse Reactions: No Known Allergies Allergy (Verified 06/19/20 08:57) Review of Systems All systems: reviewed and no additional remarkable complaints except as stated Physical Exam Vital Signs: Temp Pulse Resp BP Pulse Ox 98.7 F 73 18 107/64 96 06/19/20 12:00 06/19/20 12:00 06/19/20 12:00 06/19/20 12:00 06/19/20 12:00 Intake & Output 06/18/20 06/19/20 06/20/20 06:59 06:59 06:59 Intake Total 50 Balance 50 Weight 63.3 kg General appearance: PRESENT: no acute distress, cooperative, disheveled, well- developed, well-nourished Head exam: PRESENT: atraumatic, normocephalic Eye exam: PRESENT: conjunctiva pale, EOMI. ABSENT: nystagmus, periorbital swelling, scleral icterus Mouth exam: PRESENT: moist, neck supple, tongue midline Neck exam: ABSENT: carotid bruit, full ROM, JVD, lymphadenopathy, meningismus, tenderness, thyromegaly, tracheal deviation, tracheostomy, other Respiratory exam: PRESENT: clear to auscultation kip, unlabored, wheezes. ABSENT: rales, rhonchi, stridor, tachypnea Cardiovascular exam: PRESENT: RRR, +S1, +S2. ABSENT: tachycardia Pulses: PRESENT: normal radial pulses GI/Abdominal exam: PRESENT: soft. ABSENT: distended, guarding, mass, tenderness Extremities exam: ABSENT: calf tenderness, clubbing, joint swelling, pedal edema, tenderness Musculoskeletal exam: ABSENT: deformity, dislocation Neurological exam: PRESENT: alert, awake Psychiatric exam: PRESENT: appropriate affect Skin exam: PRESENT: dry, warm Results Laboratory Results: 06/19/20 07:02 06/19/20 07:02 06/19/20 06/19/20 06/19/20 07:02 07:02 14:10 WBC 17.9 H RBC 4.13 Hgb 12.7 Hct 36.8 MCV 89 MCH 30.8 MCHC 34.6 RDW 12.7 Plt Count 331 Seg Neutrophils % 84.2 H Carbonic Acid 1.26 HCO3/H2CO3 Ratio 22:1 ABG pH 7.44 ABG pCO2 41.9 ABG pO2 73.1 L ABG HCO3 27.8 H ABG O2 Saturation 95.2 ABG Base Excess 3.2 FiO2 ROOM AIR Sodium 138.1 Potassium 4.0 Chloride 99 Carbon Dioxide 29 Anion Gap 10 BUN 12 Creatinine 0.55 Est GFR ( Amer) > 60 Glucose 128 H Calcium 9.6 Total Bilirubin 0.8 AST 23 Alkaline Phosphatase 88 Total Protein 7.7 Albumin 4.4 06/19/20 06/19/20 06/19/20 07:02 07:02 07:02 Creatine Kinase 31 CK-MB (CK-2) < 0.22 Troponin I < 0.012 Impressions: Chest/Abdomen CTA 06/19/20 07:13 IMPRESSION: 1. BILATERAL PULMONARY EMBOLI TO THE LOWER LOBES, RIGHT GREATER THAN LEFT. 2. RIGHT PLEURAL EFFUSION. AIRSPACE DISEASE THROUGHOUT THE RIGHT LOWER LOBE PROBABLY DUE TO PULMONARY INFARCTION. SUPERIMPOSED PNEUMONIA CANNOT BE EXCLUDED. Assessment & Plan - Diagnosis (1) Anxiety disorder Qualifiers: Anxiety disorder type: generalized anxiety disorder Qualified Code(s): F41.1 - Generalized anxiety disorder Is this a current diagnosis for this admission?: Yes Plan: Continue home medication (2) Bilateral pulmonary embolism Is this a current diagnosis for this admission?: Yes Plan: Fortunately patient remains hemodynamically stable but does have a heavily clot burden I agree with heparin for the first 72 hours then switch over to Eliquis 10 mg twice a day for 4 days then Eliquis 5 mg twice a day for at least the next 3 months (3) Pulmonary infarct Is this a current diagnosis for this admission?: Yes Plan: Suspect that this will account for the patient disease, will follow closely agree with prophylactic antibiotic therapyaaaaaaaaaaaaaaaaaaaaaaaaaaaa aaaaaaaaaaaaaaaaaaa - Plan Summary Plan Summary: Thank you very much for allowing me to see Ms. Hudson and her participate. In her care
--- NOTE | 2020-06-19 17:59 | EKG REPORT ---
SEVERITY:- BORDERLINE ECG - SINUS TACHYCARDIA PROBABLE LEFT ATRIAL ABNORMALITY : Confirmed by: Rick Armenta MD 19-Jun-2020 17:59:04
[2020-06-19 20:45] LABS: CREATINE KINASE MB 0.32 ng/mL (<4.55)
[2020-06-19 20:48] LABS: TROPONIN I < 0.012 ng/mL
--- NOTE | 2020-06-19 20:50 | XCELERA REPORT ---
[address] [address] Transthoracic Echocardiogram Report Name: RUCHI STANFORD Age: 35 yrs Gender: Female : 1985 Patient Status: Inpatient Patient Location: [address] [place] [address] Study Date: 06/19/2020 10:11 AM Height: 54 in Weight: 142 lb BSA: 1.5 m2 Procedure: A complete two-dimensional transthoracic echocardiogram was performed (2D, M-mode, spectral and color flow Doppler). Study Quality: Technically suboptimal. Reason For Study: PE Ordering Physician: MARICEL VALIENTE Performed By: Yesenia Kelley Interpretation Summary The left ventricle is grossly normal size. Left ventricular systolic function is normal. LV EF is 60%. Doppler measurements suggest normal left ventricular diastolic function. Regional wall motion abnormalities cannot be excluded due to limited visualization. Aortic, tricuspid and pulmonic valves not well visualized. Minimal pericardial effusion. No gross echocardiographic evidence of RV strain. MMode/2D Measurements & Calculations RVDd: 1.8 cm LVIDd: 4.0 cm FS: 33.5 % Ao root diam: 2.2 cm IVSd: 0.85 cm LVIDs: 2.7 cm EDV(Teich): 71.5 ml Ao root area: 3.8 cm2 LVPWd: 0.71 cm ESV(Teich): 26.6 ml EF(Teich): 62.8 % Doppler Measurements & Calculations MV E max brandi: MV dec slope: Ao V2 max: LV V1 max P.4 cm/sec 798.3 cm/sec2 149.4 cm/sec 6.8 mmHg MV A max brandi: MV dec time: 0.13 secAo max PG: LV V1 max: 95.4 cm/sec 8.9 mmHg 130.6 cm/sec MV E/A: 1.1 PA V2 max: TR max brandi: 86.2 cm/sec 268.1 cm/sec PA max P.0 mmHg TR max P.7 mmHg Left Ventricle The left ventricle is grossly normal size. Left ventricular systolic function is normal. LV EF is 60%. Doppler measurements suggest normal left ventricular diastolic function. Regional wall motion abnormalities cannot be excluded due to limited visualization. Right Ventricle The right ventricle is normal in size, thickness and function. The right ventricular systolic function is normal. Atria The right atrium is normal. The left atrial size is normal. Interarterial septum not well visualized and not well dopplered. Cannot comment on ASD/PFO presence. Mitral Valve The mitral valve is normal in structure and function. There is no mitral regurgitation noted. Aortic Valve The aortic valve is not well visualized secondary to technical limitations. Tricuspid Valve The tricuspid valve is not well visualized secondary to technical limitations. Pulmonic Valve The pulmonic valve is not well visualized. Great Vessels The inferior vena cava was not well visualized. Effusions Minimal pericardial effusion. : MARICEL VALIENTE Antonio
[2020-06-19] MEDS: IPRATROPIUM/ALBUTEROL 0.5-2.5 MG/3 ML AMPUL NEB PRN (20:51)
[2020-06-19] MEDS: CEFEPIME 1 GM/D5W RTU 1 GM/50 ML RTUPB IV SCH (23:44)
[2020-06-19] MEDS: FAMOTIDINE 20 MG TABLET PO SCH (23:44)
[2020-06-19] MEDS: BUSPIRONE HCL 10 MG TABLET PO SCH (23:45)
[2020-06-20 05:53] LABS: HEMATOCRIT 32.3 % (36.0-47.0); HEMOGLOBIN 11.3 g/dL (12.0-15.5); MEAN CORPUSCULAR VOLUME 89 fl (80-97); PLATELET COUNT 302 10^3/uL (150-450); RED BLOOD COUNT 3.65 10^6/uL (3.72-5.28); RED CELL DISTRIBUTION WIDTH 12.5 % (11.5-14.0); WHITE BLOOD COUNT 13.7 10^3/uL (4.0-10.5)
--- NOTE | 2020-06-20 07:38 | Progress Note ---
Provider Note Provider Note: Hematology/Oncology consultation was received. Patient is currently being ruled out for COVID-19, so I was not able to examine the patient, but I did review her chart in great detail. She underwent breast augmentation recently and developed cough, dyspnea, and hemoptysis. She was found to have bilateral pulmonary emboli as well as possible lung infarction vs. pneumonia. She is currently on heparin IV drip. Vital signs appear stable with an O2 sat of 98% on room air. She is receiving antibiotics for possible pneumonia. I agree with the plan of heparin until her lungs improve such that she is not having hemoptysis. Then an oral agent like Eliquis or Xarelto may be used for home. I would treat for 3-6 months. After she has completed this, I would be happy to discuss further genetic work-up but prior surgery is most likely the cause of this episode. I will complete full consult once she is out of COVID restrictions. Please call with any concerns.
--- NOTE | 2020-06-20 08:45 | PDOC PROGRESS REPORT ---
Subjective Progress Note for:: 06/20/20 Subjective:: Patient is currently doing well Denied any chest pain no short of breath Patient currently on room air with 94%'s Currently on a heparin drip No hemoptysis No fever no chills Waiting for the Covid test Reason For Visit: PULMONARY EMBOLISM Physical Exam Vital Signs: Temp Pulse Resp BP Pulse Ox 98.4 F 78 18 90/53 L 97 06/20/20 08:01 06/20/20 08:01 06/20/20 08:01 06/20/20 08:01 06/20/20 08:01 Intake & Output 06/19/20 06/20/20 06/21/20 06:59 06:59 06:59 Intake Total 187 Balance 187 Weight 63.3 kg 67.6 kg General appearance: PRESENT: no acute distress, well-developed, well-nourished Head exam: PRESENT: atraumatic, normocephalic Eye exam: PRESENT: conjunctiva pink, EOMI, PERRLA. ABSENT: scleral icterus Ear exam: PRESENT: normal external ear exam Mouth exam: PRESENT: moist, tongue midline Neck exam: PRESENT: full ROM. ABSENT: carotid bruit, JVD, lymphadenopathy, thyromegaly Respiratory exam: PRESENT: clear to auscultation kip Cardiovascular exam: PRESENT: RRR. ABSENT: diastolic murmur, rubs, systolic murmur Pulses: PRESENT: normal dorsalis pedis pul, +2 pedal pulses bilateral Vascular exam: PRESENT: normal capillary refill GI/Abdominal exam: PRESENT: normal bowel sounds, soft. ABSENT: distended, guarding, mass, organolmegaly, rebound, tenderness Rectal exam: PRESENT: deferred Neurological exam: PRESENT: alert, awake, oriented to person, oriented to place, oriented to time, oriented to situation, CN II-XII grossly intact. ABSENT: motor sensory deficit Psychiatric exam: PRESENT: appropriate affect, normal mood. ABSENT: homicidal ideation, suicidal ideation Skin exam: PRESENT: dry, intact, warm. ABSENT: cyanosis, rash Results Laboratory Results: 06/20/20 05:00 06/19/20 07:02 06/19/20 06/20/20 14:10 05:00 WBC 13.7 H RBC 3.65 L Hgb 11.3 L Hct 32.3 L MCV 89 MCH 31.0 MCHC 35.0 RDW 12.5 Plt Count 302 Carbonic Acid 1.26 HCO3/H2CO3 Ratio 22:1 ABG pH 7.44 ABG pCO2 41.9 ABG pO2 73.1 L ABG HCO3 27.8 H ABG O2 Saturation 95.2 ABG Base Excess 3.2 FiO2 ROOM AIR 06/19/20 06/19/20 06/19/20 07:02 07:02 07:02 Creatine Kinase 31 CK-MB (CK-2) < 0.22 Troponin I < 0.012 06/19/20 06/19/20 06/19/20 14:25 14:25 19:35 Creatine Kinase 26 L 28 L CK-MB (CK-2) < 0.22 Troponin I < 0.012 06/19/20 19:35 Creatine Kinase CK-MB (CK-2) 0.32 Troponin I < 0.012 Impressions: Chest/Abdomen CTA 06/19/20 07:13 IMPRESSION: 1. BILATERAL PULMONARY EMBOLI TO THE LOWER LOBES, RIGHT GREATER THAN LEFT. 2. RIGHT PLEURAL EFFUSION. AIRSPACE DISEASE THROUGHOUT THE RIGHT LOWER LOBE PROBABLY DUE TO PULMONARY INFARCTION. SUPERIMPOSED PNEUMONIA CANNOT BE EXCLUDED. Assessment & Plan - Diagnosis (1) Bilateral pulmonary embolism Is this a current diagnosis for this admission?: Yes Plan: Fortunately patient remains hemodynamically stable but does have a heavily clot burden I agree with heparin for the first 72 hours then switch over to Eliquis 10 mg twice a day for 4 days then Eliquis 5 mg twice a day for at least the next 3 months (2) Pneumonia Qualifiers: Pneumonia type: due to unspecified organism Lung location: unspecified part of lung Is this a current diagnosis for this admission?: Yes Plan: Continues to current (3) Anxiety disorder Qualifiers: Anxiety disorder type: generalized anxiety disorder Qualified Code(s): F41.1 - Generalized anxiety disorder Is this a current diagnosis for this admission?: Yes Plan: Continue home medication (4) Pulmonary infarct Is this a current diagnosis for this admission?: Yes - Time Time Spent with patient: 15-24 minutes Level of Care: IMCU Medications reviewed and adjusted accordingly: Yes Anticipated discharge: Home Anticipated DC Timeframe: within 72 hours - Plan Summary Plan Summary: Continues to Heparin drip for the next 24 to 48 hours then switch to the p.o. medications patient is remained stable waiting for the Covid test
[2020-06-20] MEDS: HEPARIN SODIUM,PORCINE/D5W 25,000 UNIT/250 ML RTUINJ IV PRN (09:36)
[2020-06-20] MEDS: BUSPIRONE HCL 10 MG TABLET PO SCH ×2 (09:36→21:04)
[2020-06-20] MEDS: ESCITALOPRAM OXALATE 10 MG TABLET PO SCH (09:36)
[2020-06-20] MEDS: FAMOTIDINE 20 MG TABLET PO SCH ×2 (09:36→21:05)
[2020-06-20] MEDS: CEFEPIME 1 GM/D5W RTU 1 GM/50 ML RTUPB IV SCH ×2 (09:37→21:05)
--- NOTE | 2020-06-20 16:06 | EKG REPORT ---
SEVERITY:- NORMAL ECG - SINUS RHYTHM : Confirmed by: Rick Armenta MD 20-Jun-2020 16:05:28
[2020-06-21 06:22] LABS: ABSOLUTE EOSINOPHILS # (AUTO) 0.1 10^3/uL (0.0-0.6); ABSOLUTE LYMPHOCYTES (AUTO) 1.7 10^3/uL (0.5-4.7); ABSOLUTE MONOCYTES (AUTO) 0.6 10^3/uL (0.1-1.4); ABSOLUTE NEUT (AUTO) 7.1 10^3/uL (1.7-8.2); BASOPHILS % (AUTO) 0.3 % (0-2); EOSINOPHILS % (AUTO) 1.1 % (0-6); HEMATOCRIT 30.2 % (36.0-47.0); HEMOGLOBIN 10.7 g/dL (12.0-15.5); MEAN CORPUSCULAR HEMOGLOBIN 31.4 pg (27.0-33.4); MEAN CORPUSCULAR HGB CONC 35.5 g/dL (32.0-36.0); MEAN CORPUSCULAR VOLUME 88 fl (80-97); MONOCYTES % (AUTO) 6.3 % (3-13); PLATELET COUNT 312 10^3/uL (150-450); RED BLOOD COUNT 3.42 10^6/uL (3.72-5.28); RED CELL DISTRIBUTION WIDTH 12.7 % (11.5-14.0); SEGMENTED NEUTROPHILS % (AUTO) 74.3 % (42-78); TOTAL CELLS COUNTED % (AUTO) 100 %; WHITE BLOOD COUNT 9.5 10^3/uL (4.0-10.5)
[2020-06-21] MEDS: IPRATROPIUM/ALBUTEROL 0.5-2.5 MG/3 ML AMPUL NEB PRN (08:17)
[2020-06-21] MEDS: BUSPIRONE HCL 10 MG TABLET PO SCH ×2 (09:14→21:02)
[2020-06-21] MEDS: FAMOTIDINE 20 MG TABLET PO SCH ×2 (09:14→21:02)
[2020-06-21] MEDS: ESCITALOPRAM OXALATE 10 MG TABLET PO SCH (09:14)
[2020-06-21] MEDS: CEFEPIME 1 GM/D5W RTU 1 GM/50 ML RTUPB IV SCH ×2 (09:14→21:02)
[2020-06-21] MEDS: HEPARIN SODIUM,PORCINE/D5W 25,000 UNIT/250 ML RTUINJ IV PRN (09:20)
[2020-06-22 05:45] LABS: ABSOLUTE EOSINOPHILS # (AUTO) 0.2 10^3/uL (0.0-0.6); ABSOLUTE LYMPHOCYTES (AUTO) 1.6 10^3/uL (0.5-4.7); ABSOLUTE MONOCYTES (AUTO) 0.6 10^3/uL (0.1-1.4); ABSOLUTE NEUT (AUTO) 7.3 10^3/uL (1.7-8.2); BASOPHILS % (AUTO) 0.5 % (0-2); EOSINOPHILS % (AUTO) 1.6 % (0-6); HEMATOCRIT 31.1 % (36.0-47.0); HEMOGLOBIN 10.9 g/dL (12.0-15.5); LYMPHOCYTES % (AUTO) 16.1 % (13-45); MEAN CORPUSCULAR HEMOGLOBIN 30.9 pg (27.0-33.4); MEAN CORPUSCULAR VOLUME 88 fl (80-97); MONOCYTES % (AUTO) 5.8 % (3-13); PLATELET COUNT 347 10^3/uL (150-450); RED BLOOD COUNT 3.53 10^6/uL (3.72-5.28); RED CELL DISTRIBUTION WIDTH 12.4 % (11.5-14.0); TOTAL CELLS COUNTED % (AUTO) 100 %; WHITE BLOOD COUNT 9.7 10^3/uL (4.0-10.5)
[2020-06-22 06:10] LABS: INTERNATIONAL RATION (INR) 1.02; PROTHROMBIN TIME 13.6 SEC (11.4-15.4)
[2020-06-22 06:11] LABS: PARTIAL THROMBOPLASTIN TIME 56.7 SEC (23.5-35.8)
[2020-06-22] MEDS: HEPARIN SODIUM,PORCINE/D5W 25,000 UNIT/250 ML RTUINJ IV PRN (06:40)
[2020-06-22] MEDS: IPRATROPIUM/ALBUTEROL 0.5-2.5 MG/3 ML AMPUL NEB PRN (08:23)
[2020-06-22] MEDS: ESCITALOPRAM OXALATE 10 MG TABLET PO SCH (09:18)
[2020-06-22] MEDS: BUSPIRONE HCL 10 MG TABLET PO SCH ×2 (09:18→22:17)
[2020-06-22] MEDS: FAMOTIDINE 20 MG TABLET PO SCH ×2 (09:18→22:17)
[2020-06-22] MEDS: CEFEPIME 1 GM/D5W RTU 1 GM/50 ML RTUPB IV SCH ×2 (09:18→22:24)
--- NOTE | 2020-06-22 11:51 | PDOC PROGRESS REPORT ---
Subjective Progress Note for:: 06/21/20 Subjective:: No chest pain or difficulty with breathing. No nausea, vomiting, or abdominal pain. No fever or chills. No abnormal bleeding. Remain on heparin infusion for acute pulmonary embolism. Reason For Visit: PULMONARY EMBOLISM Physical Exam Vital Signs: Temp Pulse Resp BP Pulse Ox 98.2 F 83 16 104/65 99 06/21/20 15:39 06/21/20 15:39 06/21/20 11:24 06/21/20 15:39 06/21/20 15:39 Intake & Output 06/20/20 06/21/20 06/22/20 06:59 06:59 06:59 Intake Total 187 266 530 Balance 187 266 530 Weight 67.6 kg 68.2 kg General appearance: PRESENT: no acute distress Head exam: PRESENT: atraumatic, normocephalic Eye exam: PRESENT: conjunctiva pink. ABSENT: scleral icterus Respiratory exam: PRESENT: clear to auscultation kip Cardiovascular exam: PRESENT: RRR, +S1, +S2. ABSENT: diastolic murmur, rubs, systolic murmur Vascular exam: ABSENT: pallor GI/Abdominal exam: PRESENT: normal bowel sounds, soft. ABSENT: distended, guarding, mass, organolmegaly, rebound, tenderness Extremities exam: ABSENT: pedal edema Neurological exam: PRESENT: alert, awake, oriented to person, oriented to place, oriented to time, oriented to situation, CN II-XII grossly intact. ABSENT: motor sensory deficit Psychiatric exam: PRESENT: appropriate affect, normal mood. ABSENT: homicidal ideation, suicidal ideation Skin exam: PRESENT: dry, warm Results Laboratory Results: 06/21/20 06:05 06/19/20 07:02 06/21/20 06:05 WBC 9.5 RBC 3.42 L Hgb 10.7 L Hct 30.2 L MCV 88 MCH 31.4 MCHC 35.5 RDW 12.7 Plt Count 312 Seg Neutrophils % 74.3 06/19/20 15:15 Clean Catch Midstream Urine Culture - Final NO GROWTH 2 DAYS 06/19/20 06/19/20 06/19/20 07:02 07:02 07:02 Creatine Kinase 31 CK-MB (CK-2) < 0.22 Troponin I < 0.012 06/19/20 06/19/20 06/19/20 14:25 14:25 19:35 Creatine Kinase 26 L 28 L CK-MB (CK-2) < 0.22 Troponin I < 0.012 06/19/20 19:35 Creatine Kinase CK-MB (CK-2) 0.32 Troponin I < 0.012 Impressions: Chest/Abdomen CTA 06/19/20 07:13 IMPRESSION: 1. BILATERAL PULMONARY EMBOLI TO THE LOWER LOBES, RIGHT GREATER THAN LEFT. 2. RIGHT PLEURAL EFFUSION. AIRSPACE DISEASE THROUGHOUT THE RIGHT LOWER LOBE PROBABLY DUE TO PULMONARY INFARCTION. SUPERIMPOSED PNEUMONIA CANNOT BE EXCLUDED. Assessment & Plan - Diagnosis (1) Bilateral pulmonary embolism Is this a current diagnosis for this admission?: Yes Plan: Continue IV Heparin therapy. We will convert to oral anticoagulation in near future. (2) Pneumonia Qualifiers: Pneumonia type: due to unspecified organism Lung location: unspecified part of lung Is this a current diagnosis for this admission?: Yes Plan: Continue antibiotic coverage. Follow up on COVID-19 test result. (3) Anxiety disorder Qualifiers: Anxiety disorder type: generalized anxiety disorder Qualified Code(s): F41.1 - Generalized anxiety disorder Is this a current diagnosis for this admission?: Yes Plan: Continue current medication management. - Time Time Spent with patient: 25-34 minutes Level of Care: IMCU Medications reviewed and adjusted accordingly: Yes Anticipated discharge: Home Anticipated DC Timeframe: within 72 hours - Inpatient Certification Based on my medical assessment, after consideration of the patient's comorbidities, presenting symptoms, or acuity I expect that the services needed warrant INPATIENT care.: Yes I certify that my determination is in accordance with my understanding of Medicare's requirements for reasonable and necessary INPATIENT services [42 CFR 412.3e].: Yes Medical Necessity: Significant Comorbidiites Make Outpatient Treatment Too Risky, Need Close Monitoring Due to Risk of Patient Decompensation, Need For IV Fluids, Need For Continuous Telemetry Monitoring, Need for IV Antibiotics, Risk of Complication if Not Cared For in Hospital, Risk of Diagnosis Which Will Require Inpatient Eval/Care/Monitoring 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
--- NOTE | 2020-06-22 11:58 | PDOC PROGRESS REPORT ---
Subjective Progress Note for:: 06/22/20 Subjective:: No chest pain or difficulty with breathing. No nausea, vomiting, or abdominal pain. No fever or chills. No abnormal bleeding. Remain on heparin infusion for acute pulmonary embolism. Her COVID-19 is reported not detected. Reason For Visit: PULMONARY EMBOLISM Physical Exam Vital Signs: Temp Pulse Resp BP Pulse Ox 97.6 F 82 18 113/72 99 06/22/20 11:17 06/22/20 11:17 06/22/20 11:17 06/22/20 11:17 06/22/20 11:17 Intake & Output 06/21/20 06/22/20 06/23/20 06:59 06:59 06:59 Intake Total 266 1276 50 Balance 266 1276 50 Weight 68.2 kg 67.9 kg Physical Exam: General appearance: PRESENT: no acute distress Head exam: PRESENT: atraumatic, normocephalic Eye exam: PRESENT: conjunctiva pink. ABSENT: pallor, sclera icterus Respiratory exam: PRESENT: clear to auscultation kip Cardiovascular exam: PRESENT: RRR, +S1, +S2. ABSENT: diastolic murmur, rubs, systolic murmur GI/Abdominal exam: PRESENT: normal bowel sounds, soft. ABSENT: distended, guarding, mass, organomegaly, rebound, tenderness Extremities exam: ABSENT: pedal edema Neurological exam: PRESENT: alert, awake, oriented to person, oriented to place, oriented to time, oriented to situation, CN II-XII grossly intact. ABSENT: motor sensory deficit Psychiatric exam: PRESENT: appropriate affect, normal mood. ABSENT: homicidal ideation, suicidal ideation Skin exam: PRESENT: dry, warm Results Laboratory Results: 06/22/20 05:10 06/19/20 07:02 06/22/20 05:10 WBC 9.7 RBC 3.53 L Hgb 10.9 L Hct 31.1 L MCV 88 MCH 30.9 MCHC 35.0 RDW 12.4 Plt Count 347 Seg Neutrophils % 76.0 06/19/20 15:15 Clean Catch Midstream Urine Culture - Final NO GROWTH 2 DAYS 06/19/20 06/19/20 06/19/20 07:02 07:02 07:02 Creatine Kinase 31 CK-MB (CK-2) < 0.22 Troponin I < 0.012 1006/19/20 06/19/20 14:25 14:25 19:35 Creatine Kinase 26 L 28 L CK-MB (CK-2) < 0.22 Troponin I < 0.012 06/19/20 19:35 Creatine Kinase CK-MB (CK-2) 0.32 Troponin I < 0.012 Impressions: Chest/Abdomen CTA 06/19/20 07:13 IMPRESSION: 1. BILATERAL PULMONARY EMBOLI TO THE LOWER LOBES, RIGHT GREATER THAN LEFT. 2. RIGHT PLEURAL EFFUSION. AIRSPACE DISEASE THROUGHOUT THE RIGHT LOWER LOBE PROBABLY DUE TO PULMONARY INFARCTION. SUPERIMPOSED PNEUMONIA CANNOT BE E XCLUDED. Assessment & Plan - Diagnosis (1) Bilateral pulmonary embolism Is this a current diagnosis for this admission?: Yes Plan: Start on Eliquis 10 mg po bid x 7 days and thereafter 5 mg po bid. . D/C IV Heparin. (2) Pneumonia Qualifiers: Pneumonia type: due to unspecified organism Lung location: unspecified part of lung Is this a current diagnosis for this admission?: Yes Plan: Continue IV Cefepime coverage. (3) Anxiety disorder Qualifiers: Anxiety disorder type: generalized anxiety disorder Qualified Code(s): F41.1 - Generalized anxiety disorder Is this a current diagnosis for this admission?: Yes - Time Time Spent with patient: 25-34 minutes Level of Care: IMCU Medications reviewed and adjusted accordingly: Yes Anticipated discharge: Home Anticipated DC Timeframe: within 72 hours - Inpatient Certification Based on my medical assessment, after consideration of the patient's c omorbidities, presenting symptoms, or acuity I expect that the services needed warrant INPATIENT care.: Yes I certify that my determination is in accordance with my understanding of Medicare's requirements for reasonable and necessary INPATIENT services [42 CFR 412.3e].: Yes Medical Necessity: Significant Comorbidiites Make Outpatient Treatment Too Risky, Need Close Monitoring Due to Risk of Patient Decompensation, Need For IV Fluids, Need For Continuous Telemetry Monitoring, Need for IV Antibiotics, Risk of Complication if Not Cared For in Hospital, Risk of Diagnosis Which Will Require Inpatient Eval/Care/Monitoring 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
[2020-06-22] MEDS: APIXABAN 5 MG TABLET PO SCH ×2 (12:28→17:11)
--- NOTE | 2020-06-22 16:34 | PDOC CONSULTATION ---
Consultation Consult Date: 06/22/20 Attending physician:: ALEIDA DHILLON Provider Consulted: DRU DENNY Consult reason:: Provoked pulmonary embolism History of Present Illness Admission Date/PCP: 06/19/20 10:21 ALEIDA DHILLON MD Patient complains of: Shortness of breath, chest pain History of Present Illness: RUCHI STANFORD is a 35 year old female who presented 11 days post elective surgery with shortness of breath and chest pain found to have bilateral PE. Originally we had not seen her because of Covid restrictions, she has now been tested and is Covid negative, so we saw her officially today. She has never had thrombotic events in the past, does not have strong family history of thrombotic events. But did have elective surgery 11 days ago. Just has been switched to oral Eliquis, from heparin drip as she was quite symptomatic upon admission. Past Medical History Psychiatric Medical History: Reports: Depression, General Anxiety Disorder Hematology: Denies: Hemophilia, Sickle Cell Disease, Bleeding Tendencies, Heparin Induced Thrombocytopenia Infectious Medical History: Denies: Hepatitis B, Hepatitis C Past Surgical History Past Surgical History: Reports: Section, Tubal Ligation, Other - Abdominoplasty Social History Lives with: Family Smoking Status: Never Smoker Electronic Cigarette use?: No Frequency of Alcohol Use: None Hx Recreational Drug Use: No Drugs: None Hx Prescription Drug Abuse: No - Advance Directive Resuscitation Status: Full Code Family History Family History: Hypertension Parental Family History Reviewed: Yes Children Family History Reviewed: Yes Sibling(s) Family History Reviewed.: Yes Medication/Allergy Home Medications: Buspirone HCl [Buspar 10 mg Tablet] 10 mg PO Q12 06/19/20 Escitalopram Oxalate [Lexapro 10 mg Tablet] 20 mg PO DAILY 06/19/20 Allergies/Adverse Reactions: No Known Allergies Allergy (Verified 06/19/20 08:57) Review of Systems Constitutional: ABSENT: chills, fever(s), headache(s), weight gain, weight loss Eyes: ABSENT: visual disturbances Ears: ABSENT: hearing changes Cardiovascular: ABSENT: chest pain, dyspnea on exertion, edema, orthropnea, palpitations Respiratory: ABSENT: cough, hemoptysis Gastrointestinal: ABSENT: abdominal pain, constipation, diarrhea, hematemesis, hematochezia, nausea, vomiting Genitourinary: ABSENT: dysuria, hematuria Musculoskeletal: ABSENT: joint swelling Integumentary: ABSENT: rash, wounds Neurological: ABSENT: abnormal gait, abnormal speech, confusion, dizziness, focal weakness, syncope Psychiatric: ABSENT: anxiety, depression, homidical ideation, suicidal ideation Endocrine: ABSENT: cold intolerance, heat intolerance, polydipsia, polyuria Hematologic/Lymphatic: ABSENT: easy bleeding, easy bruising Physical Exam Vital Signs: Temp Pulse Resp BP Pulse Ox 97.6 F 76 18 113/72 99 06/22/20 11:17 06/22/20 14:00 06/22/20 11:17 06/22/20 11:17 06/22/20 11:17 Intake & Output 06/21/20 06/22/20 06/23/20 06:59 06:59 06:59 Intake Total 266 1276 50 Balance 266 1276 50 Weight 68.2 kg 67.9 kg General appearance: PRESENT: no acute distress, well-developed, well-nourished Head exam: PRESENT: atraumatic, normocephalic Eye exam: PRESENT: conjunctiva pink, EOMI, PERRLA. ABSENT: scleral icterus Ear exam: PRESENT: normal external ear exam Mouth exam: PRESENT: moist, tongue midline Neck exam: ABSENT: carotid bruit, JVD, lymphadenopathy, thyromegaly Respiratory exam: PRESENT: clear to auscultation kip. ABSENT: rales, rhonchi, wheezes Cardiovascular exam: PRESENT: RRR. ABSENT: diastolic murmur, rubs, systolic murmur Pulses: PRESENT: normal dorsalis pedis pul Vascular exam: PRESENT: normal capillary refill GI/Abdominal exam: PRESENT: normal bowel sounds, soft. ABSENT: distended, guarding, mass, organolmegaly, rebound, tenderness Rectal exam: PRESENT: deferred Extremities exam: PRESENT: full ROM. ABSENT: calf tenderness, clubbing, pedal edema Neurological exam: PRESENT: alert, awake, oriented to person, oriented to place, oriented to time, oriented to situation, CN II-XII grossly intact. ABSENT: motor sensory deficit Psychiatric exam: PRESENT: appropriate affect, normal mood. ABSENT: homicidal ideation, suicidal ideation Skin exam: PRESENT: dry, intact, warm. ABSENT: cyanosis, rash Results Laboratory Results: 06/22/20 05:10 06/19/20 07:02 06/22/20 05:10 WBC 9.7 RBC 3.53 L Hgb 10.9 L Hct 31.1 L MCV 88 MCH 30.9 MCHC 35.0 RDW 12.4 Plt Count 347 Seg Neutrophils % 76.0 06/19/20 06/19/20 06/19/20 07:02 07:02 07:02 Creatine Kinase 31 CK-MB (CK-2) < 0.22 Troponin I < 0.012 06/19/20 06/19/20 06/19/20 14:25 14:25 19:35 Creatine Kinase 26 L 28 L CK-MB (CK-2) < 0.22 Troponin I < 0.012 06/19/20 19:35 Creatine Kinase CK-MB (CK-2) 0.32 Troponin I < 0.012 Impressions: Chest/Abdomen CTA 06/19/20 07:13 IMPRESSION: 1. BILATERAL PULMONARY EMBOLI TO THE LOWER LOBES, RIGHT GREATER THAN LEFT. 2. RIGHT PLEURAL EFFUSION. AIRSPACE DISEASE THROUGHOUT THE RIGHT LOWER LOBE PROBABLY DUE TO PULMONARY INFARCTION. SUPERIMPOSED PNEUMONIA CANNOT BE EXCLUDED. Assessment & Plan - Diagnosis (1) Bilateral pulmonary embolism Is this a current diagnosis for this admission?: Yes Plan: Provoked PE, we will see her as an outpatient, and follow her. She needs 6 months of anticoagulation with Eliquis. When we see her as an outpatient we can consider hypercoagulable work-up if needed but I believe this is a provoked event. - Time Time Spent: Greater than 70 Minutes
[2020-06-23 06:43] LABS: HEMATOCRIT 32.2 % (36.0-47.0); HEMOGLOBIN 11.3 g/dL (12.0-15.5); MEAN CORPUSCULAR VOLUME 88 fl (80-97); PLATELET COUNT 362 10^3/uL (150-450); RED BLOOD COUNT 3.64 10^6/uL (3.72-5.28); RED CELL DISTRIBUTION WIDTH 12.4 % (11.5-14.0); WHITE BLOOD COUNT 7.9 10^3/uL (4.0-10.5)
--- NOTE | 2020-06-23 07:44 | PDOC PROGRESS REPORT ---
Subjective Progress Note for:: 06/23/20 Subjective:: Patient states that she is feeling good today. She was started on Eliquis yesterday. No problems with the new medication. She is anxious for discharge. No dyspnea. No pain. Reason For Visit: PULMONARY EMBOLISM Physical Exam Vital Signs: Temp Pulse Resp BP Pulse Ox 98.2 F 67 16 103/64 98 06/23/20 03:40 06/23/20 03:40 06/23/20 03:40 06/23/20 03:40 06/23/20 03:40 Intake & Output 06/22/20 06/23/20 06/24/20 06:59 06:59 06:59 Intake Total 1276 580 Output Total 0 Balance 1276 580 Weight 67.9 kg 64.8 kg General appearance: PRESENT: no acute distress, well-developed, well-nourished Head exam: PRESENT: normocephalic Eye exam: PRESENT: EOMI Respiratory exam: PRESENT: unlabored Extremities exam: ABSENT: pedal edema Neurological exam: PRESENT: alert, awake Psychiatric exam: PRESENT: appropriate affect Skin exam: PRESENT: normal color Results Laboratory Results: 06/23/20 06:25 06/19/20 07:02 06/23/20 06:25 WBC 7.9 RBC 3.64 L Hgb 11.3 L Hct 32.2 L MCV 88 MCH 31.0 MCHC 35.0 RDW 12.4 Plt Count 362 06/19/20 06/19/20 06/19/20 07:02 07:02 07:02 Creatine Kinase 31 CK-MB (CK-2) < 0.22 Troponin I < 0.012 06/19/20 06/19/20 06/19/20 14:25 14:25 19:35 Creatine Kinase 26 L 28 L CK-MB (CK-2) < 0.22 Troponin I < 0.012 06/19/20 19:35 Creatine Kinase CK-MB (CK-2) 0.32 Troponin I < 0.012 Impressions: Chest/Abdomen CTA 06/19/20 07:13 IMPRESSION: 1. BILATERAL PULMONARY EMBOLI TO THE LOWER LOBES, RIGHT GREATER THAN LEFT. 2. RIGHT PLEURAL EFFUSION. AIRSPACE DISEASE THROUGHOUT THE RIGHT LOWER LOBE PROBABLY DUE TO PULMONARY INFARCTION. SUPERIMPOSED PNEUMONIA CANNOT BE EXCLUDED. Assessment & Plan - Diagnosis (1) Bilateral pulmonary embolism Is this a current diagnosis for this admission?: Yes Plan: Continue Carli for 6 months as outpatient. I will set her up for follow-up with me in about 6 weeks. Please call if any other concerns. - Time Time Spent with patient: Less than 15 minutes
[2020-06-23 08:04] LABS: APPEARANCE,URINE SLIGHTLY-CLOUDY; BILIRUBIN,URINE NEGATIVE (NEGATIVE); COLOR,URINE YELLOW; GLUCOSE, URINE NEGATIVE (NEGATIVE); KETONES,URINE NEGATIVE (NEGATIVE); LEUKOCYTE ESTERASE,URINE NEGATIVE (NEGATIVE); NITRITE,URINE NEGATIVE (NEGATIVE); PROTEIN,URINE NEGATIVE (NEGATIVE); URINE SPECIFIC GRAVITY 1.018; UROBILINOGEN,URINE NEGATIVE mg/dL (<2.0)
[2020-06-23 08:24] VITALS: BP 107/64
[2020-06-23] MEDS: APIXABAN 5 MG TABLET PO SCH (09:00)
[2020-06-23] MEDS: BUSPIRONE HCL 10 MG TABLET PO SCH (09:00)
[2020-06-23] MEDS: ESCITALOPRAM OXALATE 10 MG TABLET PO SCH (09:00)
[2020-06-23] MEDS: FAMOTIDINE 20 MG TABLET PO SCH (09:00)
[2020-06-23] MEDS: CEFEPIME 1 GM/D5W RTU 1 GM/50 ML RTUPB IV SCH (09:04)
--- NOTE | 2020-06-23 13:21 | PDOC DISCHARGE SUMMARY ---
Impression - Admit/DC Date/PCP Admission Date/Primary Care Provider: 06/19/20 10:21 ALEIDA DHILLON MD Discharge Date: 06/23/20 - Discharge Diagnosis (1) Bilateral pulmonary embolism Is this a current diagnosis for this admission?: Yes (2) Pneumonia Is this a current diagnosis for this admission?: Yes (3) Anxiety disorder Is this a current diagnosis for this admission?: Yes (4) Pulmonary infarct Is this a current diagnosis for this admission?: Yes - Additional Information Resuscitation Status: Full Code Discharge Diet: Regular, Cardiac Discharge Activity: Activity As Tolerated Referrals: JULIANNE KEYS MD [ACTIVE STAFF] - 08/07/20 10:45 am (In about 6 weeks. Please call office to arrange. ) MIMI CUNNINGHAM PA-C [PHYSICIAN [facility] COOK] - 07/01/20 8:30 am (f/u in 1 wk) Prescriptions: Apixaban [Eliquis 5 mg Tablet] 10 mg PO BID #60 tablet Cephalexin Monohydrate [Keflex 500 mg Capsule] 500 mg PO TID #15 capsule Home Medications: Buspirone HCl [Buspar 10 mg Tablet] 10 mg PO Q12 06/19/20 Escitalopram Oxalate [Lexapro 10 mg Tablet] 20 mg PO DAILY 06/19/20 Apixaban [Eliquis 5 mg Tablet] 10 mg PO BID #60 tablet 06/23/20 Cephalexin Monohydrate [Keflex 500 mg Capsule] 500 mg PO TID #15 capsule 06/23/20 History of Present Illiness History of Present Illness: RUCHI STANFORD is a 35 year old female Is a 35-year-old female with a significant history of anxiety panic attack recently have bilateral breast augmentation and abdominoplasty was done 11 days back came to the emergency department with a complaining of chest pain or shortness of the breath started yesterday Patient also noticed some blood in the sputum and felt better yesterday but today's the symptom is getting more worse in the emergency department patient initial CT scan of the angiogram suggested bilateral pulmonary embolism with right-sided pulmonary infarct and a questionable airspace disease Patient's denied any fever no chills no cough no other symptoms no contact with any Covid Patient's white count was elevated When I saw the patient in the floor patient was alert awake oriented x4 no acute distressed still having some pain when taking deep breathing Patient asking for the Percocet instead of the morphine for the pain she took the Percocet before and works very well and denied any side effect with the medications Discussed with the patient and at this point continues the heparin drip consult the vp of digital marketing and pulmonary Ordered a stat echocardiogram to rule out any overnight status of the heart strain Hospital Course Hospital Course: 35-year-old female admitting for the acute pulmonary embolism and pulmonary infarct and questionable pneumonia Patient seen by the pulmonary Dr. Hernandez and Hematology dr chang Patient was initially treated with heparin drips per 72 hours and then changed to the Eliquis 10 mg p.o. twice a day also treat with IV antibiotic Patient have a Covid test was done was also negative Patient's responds very well And patient is walking the hallway without any problems no chest pain no short of breath Very extensive discussions with the patient about the Eliquis with potential side effect fall precautions Discussed with the hematology following 2 weeks Physical Exam Vital Signs: Temp Pulse Resp BP Pulse Ox 98.2 F 70 16 107/64 97 06/23/20 08:23 06/23/20 08:23 06/23/20 08:23 06/23/20 08:23 06/23/20 08:23 Intake & Output 06/22/20 06/23/20 06/24/20 06:59 06:59 06:59 Intake Total 1276 580 Output Total 0 Balance 1276 580 Weight 67.9 kg 64.8 kg General appearance: PRESENT: no acute distress, well-developed, well-nourished Head exam: PRESENT: atraumatic, normocephalic Eye exam: PRESENT: conjunctiva pink, EOMI, PERRLA. ABSENT: scleral icterus Ear exam: PRESENT: normal external ear exam Mouth exam: PRESENT: moist, tongue midline Neck exam: ABSENT: carotid bruit, JVD, lymphadenopathy, thyromegaly Respiratory exam: PRESENT: clear to auscultation kip. ABSENT: rales, rhonchi, wheezes Cardiovascular exam: PRESENT: RRR. ABSENT: diastolic murmur, rubs, systolic murmur Pulses: PRESENT: normal dorsalis pedis pul Vascular exam: PRESENT: normal capillary refill GI/Abdominal exam: PRESENT: normal bowel sounds, soft. ABSENT: distended, guarding, mass, organolmegaly, rebound, tenderness Rectal exam: PRESENT: deferred Extremities exam: PRESENT: full ROM. ABSENT: calf tenderness, clubbing, pedal edema Neurological exam: PRESENT: alert, awake, oriented to person, oriented to place, oriented to time, oriented to situation, CN II-XII grossly intact. ABSENT: motor sensory deficit Psychiatric exam: PRESENT: appropriate affect, normal mood. ABSENT: homicidal ideation, suicidal ideation Skin exam: PRESENT: dry, intact, warm. ABSENT: cyanosis, rash Results Laboratory Results: WBC 7.9 10^3/uL (4.0-10.5) 06/23/20 06:25 RBC 3.64 10^6/uL (3.72-5.28) L 06/23/20 06:25 Hgb 11.3 g/dL (12.0-15.5) L 06/23/20 06:25 Hct 32.2 % (36.0-47.0) L 06/23/20 06:25 MCV 88 fl (80-97) 06/23/20 06:25 MCH 31.0 pg (27.0-33.4) 06/23/20 06:25 MCHC 35.0 g/dL (32.0-36.0) 06/23/20 06:25 RDW 12.4 % (11.5-14.0) 06/23/20 06:25 Plt Count 362 10^3/uL (150-450) 06/23/20 06:25 Lymph % (Auto) 16.1 % (13-45) 06/22/20 05:10 Reagan % (Auto) 5.8 % (3-13) 06/22/20 05:10 Eos % (Auto) 1.6 % (0-6) 06/22/20 05:10 Baso % (Auto) 0.5 % (0-2) 06/22/20 05:10 Absolute Neuts (auto) 7.3 10^3/uL (1.7-8.2) 06/22/20 05:10 Absolute Lymphs (auto) 1.6 10^3/uL (0.5-4.7) 06/22/20 05:10 Absolute Monos (auto) 0.6 10^3/uL (0.1-1.4) 06/22/20 05:10 Absolute Eos (auto) 0.2 10^/uL (0.0-0.6) 06/22/20 05:10 Absolute Basos (auto) 0.0 10^3/uL (0.0-0.2) 06/22/20 05:10 Seg Neutrophils % 76.0 % (42-78) 06/22/20 05:10 PT 13.6 SEC (11.4-15.4) 06/22/20 05:10 INR 1.02 06/22/20 05:10 APTT 71.0 SEC (23.5-35.8) H 06/22/20 12:27 Carbonic Acid 1.26 mmol/L (1.05-1.35) 06/19/20 14:10 HCO3/H2CO3 Ratio 22:1 06/19/20 14:10 ABG pH 7.44 (7.35-7.45) 06/19/20 14:10 ABG pCO2 41.9 mmHg (35-45) 06/19/20 14:10 ABG pO2 73.1 mmHg (80-100) L 06/19/20 14:10 ABG HCO3 27.8 mmol/L (20-24) H 06/19/20 14:10 ABG Total CO2 29.0 mmol/L (21-25) H 06/19/20 14:10 ABG O2 Saturation 95.2 % (94-98) 06/19/20 14:10 ABG Base Excess 3.2 mmol/L 06/19/20 14:10 FiO2 ROOM AIR 06/19/20 14:10 Sodium 138.1 mmol/L (137-145) 06/19/20 07:02 Potassium 4.0 mmol/L (3.6-5.0) 06/19/20 07:02 Chloride 99 mmol/L (98-107) 06/19/20 07:02 Carbon Dioxide 29 mmol/L (22-30) 06/19/20 07:02 Anion Gap 10 (5-19) 06/19/20 07:02 BUN 12 mg/dL (7-20) 06/19/20 07:02 Creatinine 0.55 mg/dL (0.52-1.25) 06/19/20 07:02 Est GFR ( Amer) > 60 (>60) 06/19/20 07:02 Est GFR (MDRD) Non-Af > 60 (>60) 06/19/20 07:02 Glucose 128 mg/dL (75-110) H 06/19/20 07:02 Calcium 9.6 mg/dL (8.4-10.2) 06/19/20 07:02 Total Bilirubin 0.8 mg/dL (0.2-1.3) 06/19/20 07:02 Direct Bilirubin 0.3 mg/dL (0.0-0.4) 06/19/20 07:02 Neonat Total Bilirubin Not Reportable 06/19/20 07:02 Neonat Direct Bilirubin Not Reportable 06/19/20 07:02 Neonat Indirect Bili Not Reportable 06/19/20 07:02 AST 23 U/L (14-36) 06/19/20 07:02 ALT 13 U/L (<35) 06/19/20 07:02 Alkaline Phosphatase 88 U/L (38-126) 06/19/20 07:02 Creatine Kinase 28 U/L (30-135) L 06/19/20 19:35 CK-MB (CK-2) 0.32 ng/mL (<4.55) 06/19/20 19:35 Troponin I < 0.012 ng/mL 06/19/20 19:35 Total Protein 7.7 g/dL (6.3-8.2) 06/19/20 07:02 Albumin 4.4 g/dL (3.5-5.0) 06/19/20 07:02 Urine Color YELLOW 06/23/20 07:40 Urine Appearance SLIGHTLY-CLOUDY 06/23/20 07:40 Urine pH 5.0 (5.0-9.0) 06/23/20 07:40 Ur Specific [place] 1.018 06/23/20 07:40 Urine Protein NEGATIVE mg/dL (NEGATIVE) 06/23/20 07:40 Urine Glucose (UA) NEGATIVE mg/dL (NEGATIVE) 06/23/20 07:40 Urine Ketones NEGATIVE mg/dL (NEGATIVE) 06/23/20 07:40 Urine Blood NEGATIVE (NEGATIVE) 06/23/20 07:40 Urine Nitrite NEGATIVE (NEGATIVE) 06/23/20 07:40 Urine Bilirubin NEGATIVE (NEGATIVE) 06/23/20 07:40 Urine Urobilinogen NEGATIVE mg/dL (<2.0) 06/23/20 07:40 Ur Leukocyte Esterase NEGATIVE (NEGATIVE) 06/23/20 07:40 Urine RBC (Auto) 1 /HPF 06/23/20 07:40 Squamous Epi Cells Auto 2 /HPF 06/23/20 07:40 Urine Mucus (Auto) MANY /LPF 06/23/20 07:40 Urine Ascorbic Acid NEGATIVE (NEGATIVE) 06/23/20 07:40 COVID-19 Source See comment 06/19/20 12:48 COVID-19 ([facility]US) Not Detected (Not Detect) 06/19/20 12:48 06/19/20 06/19/20 06/19/20 07:02 07:02 14:25 CK-MB (CK-2) < 0.22 < 0.22 Troponin I < 0.012 < 0.012 06/19/20 19:35 CK-MB (CK-2) 0.32 Troponin I < 0.012 Impressions: Chest/Abdomen CTA 06/19/20 07:13 IMPRESSION: 1. BILATERAL PULMONARY EMBOLI TO THE LOWER LOBES, RIGHT GREATER THAN LEFT. 2. RIGHT PLEURAL EFFUSION. AIRSPACE DISEASE THROUGHOUT THE RIGHT LOWER LOBE PROBABLY DUE TO PULMONARY INFARCTION. SUPERIMPOSED PNEUMONIA CANNOT BE EXCLUDED. Plan Time Spent: Greater than 30 Minutes - Continues the Eliquis for 6-month per hematology follow-up with her follow in office 1 week Stroke Is this a Stroke Patient?: No Acute Heart Failure Is this a Heart Failure Patient?: No
== END 2020-06-23 09:29 | disposition home or self-care (01) | DRG 175 ==
LOC: ER 06:44 → EH 10:21 → 3S 11:49 → 3N 13:25 → 3W 06-22 11:06
PROVIDERS: ADMIT Family Medicine; ATTEND Family Medicine
DX: I26.99 Other pulmonary embolism without acute cor pulmonale (principal); J18.9 Pneumonia, unspecified organism; F32.9 Major depressive disorder, single episode, unspecified; F41.1 Generalized anxiety disorder; R00.0 Tachycardia, unspecified; Z79.899 Other long term (current) drug therapy; Z98.890 Other specified postprocedural states; Z20.828 Contact with and (suspected) exposure to other viral communicable diseases; Z79.02 Long term (current) use of antithrombotics/antiplatelets
CPT/HCPCS: 36415; 36600; 71275; 80053; 81001; 82550; 82553; 82803; 84484; 85025; 85027; 85610; 85730; 87040; 87070; 87086; 87205; 87635; 93005; 93010; 93306; 94640; 96365; 96375; 99285; C9803; J0692; J1644; J2270; J2405

== ENCOUNTER → 2020-07-01 | Outpatient (CLI) | payer BC ==
--- NOTE | 2020-07-01 11:06 | RADIOLOGY REPORT (SQ) ---
EXAM DESCRIPTION: CHEST PA/LATERAL IMAGES COMPLETED DATE/TIME: 07/01/2020 9:33 am REASON FOR STUDY: PNEUMONIA, UNSPECIFIED ORGANISM COMPARISON: CT chest 06/19/2020 EXAM PARAMETERS: NUMBER OF VIEWS: two views TECHNIQUE: Digital Frontal and Lateral radiographic views of the chest acquired. RADIATION DOSE: NA LIMITATIONS: none FINDINGS: LUNGS AND PLEURA: Increased opacities within the posterior right lower lobe. No pleural e ffusion or pneumothorax. MEDIASTINUM AND HILAR STRUCTURES: No masses or contour abnormalities. HEART AND VASCULAR STRUCTURES: Heart normal size. No evidence for failure. BONES: No acute findings. HARDWARE: Bilateral breast prostheses. OTHER: No other significant finding. IMPRESSION: Posterior right lower lobe increased density, possibly pneumonia or pulmonary infarct fr om recent known pulmonary emboli. TECHNICAL DOCUMENTATION: JOB ID: [id number] 2010 [employer]- All Rights Reserved Reading location - IP/workstation name: [email or web address]
== END ==
LOC: OD 09:04
PROVIDERS: ATTEND Physician Assistant
DX: J18.9 Pneumonia, unspecified organism (principal)
CPT/HCPCS: 71046

== ENCOUNTER → 2020-08-20 | Outpatient (CLI) | payer BC ==
[~2020-08-20] MED LIST: COVID-19 VACCINE (PFIZER)/PF 30 MCG/0.3 ML VIAL IM ONE; EPINEPHRINE INJ/PF 1 MG/1 ML AMPULE IM PRN
== END ==
LOC: EMPHEALTH 07:49
PROVIDERS: ATTEND Internal Medicine
DX: Z23 Encounter for immunization (principal)
CPT/HCPCS: 91300

== ENCOUNTER → 2020-09-09 | Outpatient (CLI) | payer BC | LOC: EMPHEALTH 07:36 | PROVIDERS: ATTEND Internal Medicine | DX: Z23 Encounter for immunization (principal) | CPT/HCPCS: 91300 ==